=== PATIENT | male | born 1995 | race Caucasian/White ===

== ENCOUNTER 2020-12-03 16:39 | Inpatient (IN) | payer MEDICAID ==
[~2020-12-03] VITALS: Ht 175.3 cm; Wt 104.5 kg
[~2020-12-03 16:39] MED LIST: BENZ1TAB7 PO; CARI1.5C PO; DIVA250T8 PO; Lorazepam PO; PRAZ1CAP5 PO
--- NOTE | 2020-12-03 16:55 | NUR ---
at Addendum: 12/03/20 at [address] Montelongo at bedside doing ultrasound of abdomen
[2020-12-03] MEDS ORDERED: iohexol 300mg/ml 100ml inj. ONE (16:57)
[2020-12-03 17:34] LABS: BASOPHILS # (AUTO) 0.1 X10'3 (0-0.2); BASOPHILS % (AUTO) 0.6 % (0-1); EOSINOPHILS # (AUTO) 0.1 X10'3 (0-0.9); EOSINOPHILS % (AUTO) 0.6 % (0-6); HEMATOCRIT 42.3 % (42.0-52.0); HEMOGLOBIN 14.7 g/dl (14.0-17.9); LYMPHOCYTES # (AUTO) 1.1 X10'3 (1.1-4.8); LYMPHOCYTES % (AUTO) 11.1 % (21-51); MEAN CORPUSCULAR HEMOGLOBIN 31.2 PG (27.0-31.0); MEAN CORPUSCULAR HGB CONC 34.8 g/dL (33.0-36.5); MEAN CORPUSCULAR VOLUME 89.5 FL (78-98); MEAN PLATELET VOLUME 8.6 FL (7.4-10.4); MONOCYTES # (AUTO) 1.7 X10'3 (0-0.9); MONOCYTES % (AUTO) 16.5 % (2-12); NEUTROPHILS # (AUTO) 7.2 X10'3 (1.8-7.7); NEUTROPHILS % (AUTO) 71.2 % (42-75); PLATELET COUNT 252 X10'3 (140-440); RED BLOOD COUNT 4.73 X10'6 (4.70-6.10); RED CELL DISTRIBUTION WIDTH 11.8 % (11.5-14.5); WHITE BLOOD COUNT 10.2 X10'3 (4.5-11.0)
[2020-12-03 17:45] LABS: ALANINE AMINOTRANSFERASE 77 U/L (12-78); ALBUMIN 3.5 G/DL (3.4-5.0); ALKALINE PHOSPHATASE 69 IU/L (46-116); ANION GAP 9 (8-16); BILIRUBIN,TOTAL 0.4 MG/DL (0.1-1.0); BLOOD UREA NITROGEN 8 MG/DL (7-18); BUN/CREATININE RATIO 9.2 (5.4-32.0); CALCIUM 8.3 MG/DL (8.5-10.1); CHLORIDE 105 MMOL/L (99-107); CREATININE 0.87 MG/DL (0.60-1.10); GLUCOSE 108 MG/DL (70-104); SODIUM 142 MMOL/L (135-145); TOTAL CARBON DIOXIDE 27.8 MMOL/L (24-32); TOTAL PROTEIN 7.1 G/DL (6.4-8.2); eGFR > 90 ML/MIN
[2020-12-03 17:56] LABS: POTASSIUM 4.4 MMOL/L (3.5-5.1)
[2020-12-03 18:02] LABS: ASPARTATE AMINO TRANSFERASE 54 U/L (10-37)
[2020-12-03 18:41] LABS: TROPONIN I < 0.04 NG/ML (0.0-0.05)
--- NOTE | 2020-12-03 19:02 | NUR ---
ECHO PAGED OUT
[2020-12-03] MEDS ORDERED: CARI1.5C PO (19:30)
[2020-12-03] MEDS ORDERED: DIVA-76 PO (19:32)
[2020-12-03] MEDS ORDERED: LORA-269 PO (19:33)
[2020-12-03 19:37] LABS: BANDS% (MANUAL) 6 % (0-10); LYMPHOCYTES % (MANUAL) 12 % (21-51); NEUTROPHILS % (MANUAL) 66 % (42-75); TOTAL CELLS COUNTED 100
[2020-12-03] MEDS ORDERED: BENZ0.5T43 PO (19:37)
[2020-12-03 19:38] LABS: EOSINOPHILS % (MANUAL) 1 % (0-6); MONOCYTES % (MANUAL) 15 % (2-12); PLATELET ESTIMATE NORMAL
[2020-12-03] MEDS ORDERED: PRAZ2CAP2 PO (19:38)
[2020-12-03] MEDS ORDERED: DIVA-81 PO (19:45)
--- NOTE | 2020-12-03 20:00 | NUR ---
Pt lying on stretcher with no complaints voiced or reported. Mom remains at bedside.
[2020-12-03] MEDS ORDERED: acetaminophen 325mg tablet PO PRN ×2 (20:15)
[2020-12-03] MEDS ORDERED: potassium Cl 20 mEq SR tablet PO PRN ×2 (20:15)
[2020-12-03] MEDS ORDERED: HYDROcodone/acetaminophen 5mg/325mg tablet PO PRN (20:15)
[2020-12-03] MEDS ORDERED: ondansetron/PF 4mg/2ml inj IV PRN (20:15)
[2020-12-03] MEDS ORDERED: magnesium hydroxide 30ml (MOM) UD suspension PO PRN (20:15)
[2020-12-03] MEDS ORDERED: HYDROcodone/acetaminophen 10/325mg tab PO PRN (20:15)
[2020-12-03] MEDS ORDERED: morphine 2 MG/ML inj. syringe IV PRN ×2 (20:15)
[2020-12-03] MEDS ORDERED: mag hydrox/Alum hydrox/simeth 30ml oral suspension PO PRN (20:15)
[2020-12-03] MEDS ORDERED: magnesium 4gm in 100ml NS 100 ML IV PRN (20:15)
[2020-12-03] MEDS ORDERED: potassium Cl 40MEQ/1/2NS 520ml 520 ML IV PRN ×2 (20:15)
[2020-12-03] MEDS ORDERED: magnesium Cl slow-release 64mg tablet PO PRN (20:15)
[2020-12-03] MEDS ORDERED: magnesium 2GM in 50ml NS 50 ML IV PRN (20:15)
[2020-12-03] MEDS: normal saline 1000ml 1,000 ML IV SCH (20:56)
[2020-12-03] MEDS ORDERED: temazepam 15mg capsule PO PRN (21:00)
--- NOTE | 2020-12-03 23:00 | NUR ---
Pt asleep. + rise and fall of chest noted.
--- NOTE | 2020-12-04 02:00 | NUR ---
Pt sleeping with no complaints voiced or reported.
--- NOTE | 2020-12-04 04:35 | NUR ---
Pt awake. Denies pain or any other complaints at this time.
[2020-12-04] MEDS: normal saline 1000ml 1,000 ML IV SCH ×2 (06:15→16:27)
--- NOTE | 2020-12-04 07:27 | NUR ---
pt ambulated to bathroom with no assistance needed, steady gait.
[2020-12-04] MEDS: docusate sod 100mg capsule PO SCH ×2 (07:42→21:11)
[2020-12-04] MEDS: heparin, porcine 5000 units/ml vial SQ SCH ×2 (07:42→21:13)
[2020-12-04] MEDS: pantoprazole 40mg Tablet.DR PO SCH (07:42)
[2020-12-04] MEDS: K and/or MAG REPLACEMENT MC SCH ×2 (07:43→20:00)
--- NOTE | 2020-12-04 08:48 | NUR ---
pt walking around nursing station. stated he is tired of being in bed all night. ambulated with no assistance needed, no distress.
[2020-12-04 09:35] LABS: BASOPHILS % (AUTO) 0.5 % (0-1); EOSINOPHILS % (AUTO) 0.4 % (0-6); HEMATOCRIT 44.8 % (42.0-52.0); HEMOGLOBIN 15.3 g/dl (14.0-17.9); LYMPHOCYTES # (AUTO) 1.2 X10'3 (1.1-4.8); MEAN CORPUSCULAR HEMOGLOBIN 30.9 PG (27.0-31.0); MEAN CORPUSCULAR HGB CONC 34.3 g/dL (33.0-36.5); MEAN CORPUSCULAR VOLUME 90.2 FL (78-98); MEAN PLATELET VOLUME 8.8 FL (7.4-10.4); MONOCYTES # (AUTO) 1.5 X10'3 (0-0.9); MONOCYTES % (AUTO) 17.5 % (2-12); NEUTROPHILS % (AUTO) 67.6 % (42-75); PLATELET COUNT 292 X10'3 (140-440); RED BLOOD COUNT 4.97 X10'6 (4.70-6.10); RED CELL DISTRIBUTION WIDTH 12.2 % (11.5-14.5); WHITE BLOOD COUNT 8.9 X10'3 (4.5-11.0)
[2020-12-04 09:53] LABS: ALANINE AMINOTRANSFERASE 76 U/L (12-78); ALBUMIN 3.8 G/DL (3.4-5.0); ALBUMIN/GLOBULIN RATIO 0.9 (1.1-1.5); ALKALINE PHOSPHATASE 65 IU/L (46-116); ANION GAP 12 (8-16); BILIRUBIN,TOTAL 0.8 MG/DL (0.1-1.0); BLOOD UREA NITROGEN 12 MG/DL (7-18); BUN/CREATININE RATIO 18.5 (5.4-32.0); CALCIUM 8.4 MG/DL (8.5-10.1); CHLORIDE 103 MMOL/L (99-107); CREATININE 0.65 MG/DL (0.60-1.10); GLUCOSE 92 MG/DL (70-104); MAGNESIUM 2.3 MG/DL (1.5-2.4); SODIUM 141 MMOL/L (135-145); TOTAL CARBON DIOXIDE 26.2 MMOL/L (24-32); TOTAL PROTEIN 7.9 G/DL (6.4-8.2); eGFR > 90 ML/MIN
[2020-12-04 09:54] LABS: ASPARTATE AMINO TRANSFERASE 50 U/L (10-37); POTASSIUM 4.3 MMOL/L (3.5-5.1)
--- NOTE | 2020-12-04 09:54 | NUR ---
PATIENT MOVED TO B PER CARMEN AND RESTING QUIETLY.
[2020-12-04] MEDS: CARIPRAZINE 1.5 MG CAPSULE PO SCH ×2 (11:36→21:11)
[2020-12-04] MEDS: divalproex sodium 500mg tablet.DR PO SCH ×2 (11:36→21:12)
[2020-12-04] MEDS: divalproex sod 250mg ER (24-hour) tablet PO SCH (11:36)
--- NOTE | 2020-12-04 14:25 | NUR ---
PAGE TO DR. ENGLAND TO CLARIFY DIET. PAGER ID: [phone] MESSAGE: DR. ENGLAND, ER PATIENT, Annie CEE (FAST TRACK BED C) IS STILL CLASSIFIED NPO. CAN WE INCREASE HIS DIET, OR ARE YOU PLANNING TO CALL A CONSULT? THANKS, ANDREA RN EXT. [phone]
--- NOTE | 2020-12-04 16:10 | NUR ---
Pt in ER. Patient to go to room PCU 3013. I have received report from Mahsa in ER and had the opportunity to ask questions and assume patient care.
[2020-12-04 16:53] LABS: RED CELL DISTRIBUTION WIDTH 12.1 % (11.5-14.5)
[2020-12-04 16:54] LABS: HEMATOCRIT 42.8 % (42.0-52.0); MEAN CORPUSCULAR HEMOGLOBIN 31.1 PG (27.0-31.0); MEAN PLATELET VOLUME 9.3 FL (7.4-10.4); PLATELET COUNT 299 X10'3 (140-440); RED BLOOD COUNT 4.82 X10'6 (4.70-6.10); WHITE BLOOD COUNT 8.2 X10'3 (4.5-11.0)
[2020-12-04 17:00] VITALS: BP 134/81
[2020-12-04 17:10] LABS: PLATELET ESTIMATE NORMAL; TOTAL CELLS COUNTED 100
[2020-12-04 19:00] VITALS: BP 128/74
[2020-12-04] MEDS ORDERED: CARIPRAZINE 1.5 MG CAPSULE PO SCH (20:00)
[2020-12-04] MEDS ORDERED: divalproex sodium 500mg tablet.DR PO SCH (20:00)
[2020-12-04] MEDS ORDERED: prazosin 1mg capsule PO SCH (21:00)
[2020-12-04] MEDS: benztropine 1mg tablet PO SCH (21:10)
[2020-12-04] MEDS: LORazepam 0.5 MG tablet PO SCH (21:11)
[2020-12-04 23:00] VITALS: BP 124/70
[2020-12-05 03:00] VITALS: BP 139/84
[2020-12-05] MEDS: normal saline 1000ml 1,000 ML IV SCH (03:53)
--- NOTE | 2020-12-05 07:00 | NUR ---
Patient in room PCU 3013. I have received report from Lashell Aguilar and had the opportunity to ask questions and assume patient care.
[2020-12-05 07:05] VITALS: BP 127/87
[2020-12-05 07:08] LABS: BASOPHILS % (AUTO) 0.7 % (0-1); EOSINOPHILS # (AUTO) 0.2 X10'3 (0-0.9); EOSINOPHILS % (AUTO) 2.6 % (0-6); HEMATOCRIT 41.2 % (42.0-52.0); HEMOGLOBIN 13.9 g/dl (14.0-17.9); LYMPHOCYTES # (AUTO) 1.6 X10'3 (1.1-4.8); LYMPHOCYTES % (AUTO) 25.8 % (21-51); MEAN CORPUSCULAR HEMOGLOBIN 30.7 PG (27.0-31.0); MEAN CORPUSCULAR HGB CONC 33.8 g/dL (33.0-36.5); MEAN CORPUSCULAR VOLUME 90.9 FL (78-98); MEAN PLATELET VOLUME 9.1 FL (7.4-10.4); MONOCYTES % (AUTO) 16.2 % (2-12); NEUTROPHILS # (AUTO) 3.4 X10'3 (1.8-7.7); NEUTROPHILS % (AUTO) 54.7 % (42-75); PLATELET COUNT 260 X10'3 (140-440); RED BLOOD COUNT 4.53 X10'6 (4.70-6.10); WHITE BLOOD COUNT 6.2 X10'3 (4.5-11.0)
[2020-12-05 07:31] LABS: ALANINE AMINOTRANSFERASE 71 U/L (12-78); ALBUMIN 3.3 G/DL (3.4-5.0); ALBUMIN/GLOBULIN RATIO 0.9 (1.1-1.5); ALKALINE PHOSPHATASE 64 IU/L (46-116); ANION GAP 8 (8-16); ASPARTATE AMINO TRANSFERASE 42 U/L (10-37); BILIRUBIN,TOTAL 0.7 MG/DL (0.1-1.0); BLOOD UREA NITROGEN 18 MG/DL (7-18); BUN/CREATININE RATIO 20.7 (5.4-32.0); CALCIUM 8.2 MG/DL (8.5-10.1); CHLORIDE 107 MMOL/L (99-107); CREATININE 0.87 MG/DL (0.60-1.10); GLUCOSE 79 MG/DL (70-104); MAGNESIUM 2.3 MG/DL (1.5-2.4); POTASSIUM 3.8 MMOL/L (3.5-5.1); SODIUM 142 MMOL/L (135-145); TOTAL CARBON DIOXIDE 26.7 MMOL/L (24-32); TOTAL PROTEIN 6.8 G/DL (6.4-8.2); eGFR > 90 ML/MIN
[2020-12-05 07:32] LABS: TOTAL CELLS COUNTED 100
[2020-12-05 07:33] LABS: PLATELET ESTIMATE NORMAL
[2020-12-05] MEDS: divalproex sodium 500mg tablet.DR PO SCH (07:37)
[2020-12-05] MEDS: LORazepam 0.5 MG tablet PO SCH (07:37)
[2020-12-05] MEDS: divalproex sod 250mg ER (24-hour) tablet PO SCH (07:37)
[2020-12-05] MEDS: docusate sod 100mg capsule PO SCH (07:37)
[2020-12-05] MEDS: benztropine 1mg tablet PO SCH (07:37)
[2020-12-05] MEDS: pantoprazole 40mg Tablet.DR PO SCH (07:37)
[2020-12-05] MEDS: heparin, porcine 5000 units/ml vial SQ SCH (07:38)
[2020-12-05] MEDS: CARIPRAZINE 1.5 MG CAPSULE PO SCH (07:49)
[2020-12-05] MEDS: K and/or MAG REPLACEMENT MC SCH (07:51)
[2020-12-05 11:00] VITALS: BP 141/89
--- NOTE | 2020-12-05 12:18 | NUR ---
Pt stable for discharge per MD orders. Discharge instructions gone over with patient and all questions answered. Pt sent home with incentive spirometry device educated on use and return demonstration given and appropriate. PIV discontinued, Telemonitoring discontinued. Tech notified. Medications electronically sent to patient's pharmacy. Pt wheeled to lobby by staff and transported home by his controller operations and hr manager.
== END 2020-12-05 12:34 | disposition home or self-care (01) | DRG 135 ==
LOC: EDBD 16:39 → ER 16:39 → ED HOLD 20:29 → PCU 3S 12-04 16:44
PROVIDERS: ADMIT Internal Medicine; ATTEND Internal Medicine
PROC: BW241ZZ Computerized Tomography (CT Scan) of Chest and Abdomen using Low Osmolar Contrast (ICD-10-PCS; principal; 2020-12-03)
DX: S22.22XA Fracture of body of sternum, initial encounter for closed fracture (principal); F25.9 Schizoaffective disorder, unspecified; J90 Pleural effusion, not elsewhere classified; S30.1XXA Contusion of abdominal wall, initial encounter; F84.0 Autistic disorder; Y92.410 Unspecified street and highway as the place of occurrence of the external cause; V89.2XXA Person injured in unspecified motor-vehicle accident, traffic, initial encounter; Z79.899 Other long term (current) drug therapy; Y93.89 Activity, other specified; Y92.488 Other paved roadways as the place of occurrence of the external cause; Y99.8 Other external cause status; Z88.8 Allergy status to other drugs, medicaments and biological substances; S20.219A Contusion of unspecified front wall of thorax, initial encounter
CPT/HCPCS: 36415; 70450; 71045; 71260; 72125; 74177; 80053; 83735; 84484; 85007; 85025; 85610; 87081; 93005; 93306; 99285; G0378; J1644; J7030; Q9967

== ENCOUNTER 2021-02-02 09:55 | Emergency (ER) | payer MEDICAID ==
[~2021-02-02] VITALS: Ht 175.3 cm; Wt 105.2 kg
[~2021-02-02 09:55] MED LIST changes: +BENZ0.5T43 PO; +DIVA-76 PO; +DIVA-81 PO; +LORA-269 PO; +PRAZ2CAP2 PO
[2021-02-02 11:16] LABS: BASOPHILS % (AUTO) 0.6 % (0-1); EOSINOPHILS # (AUTO) 0.1 X10'3 (0-0.9); EOSINOPHILS % (AUTO) 0.9 % (0-6); HEMATOCRIT 45.8 % (42.0-52.0); HEMOGLOBIN 15.9 g/dl (14.0-17.9); LYMPHOCYTES # (AUTO) 1.6 X10'3 (1.1-4.8); MEAN CORPUSCULAR HEMOGLOBIN 30.6 PG (27.0-31.0); MEAN CORPUSCULAR HGB CONC 34.6 g/dL (33.0-36.5); MEAN CORPUSCULAR VOLUME 88.5 FL (78-98); MEAN PLATELET VOLUME 8.5 FL (7.4-10.4); MONOCYTES # (AUTO) 0.8 X10'3 (0-0.9); MONOCYTES % (AUTO) 11.4 % (2-12); NEUTROPHILS # (AUTO) 4.5 X10'3 (1.8-7.7); NEUTROPHILS % (AUTO) 64.1 % (42-75); PLATELET COUNT 315 X10'3 (140-440); RED BLOOD COUNT 5.18 X10'6 (4.70-6.10); RED CELL DISTRIBUTION WIDTH 12.2 % (11.5-14.5); WHITE BLOOD COUNT 7.1 X10'3 (4.5-11.0)
[2021-02-02 11:30] LABS: ALANINE AMINOTRANSFERASE 139 U/L (12-78); ALBUMIN 3.8 G/DL (3.4-5.0); ALKALINE PHOSPHATASE 79 IU/L (46-116); ANION GAP 9 (8-16); ASPARTATE AMINO TRANSFERASE 50 U/L (10-37); BILIRUBIN,TOTAL 0.5 MG/DL (0.1-1.0); BLOOD UREA NITROGEN 12 MG/DL (7-18); BUN/CREATININE RATIO 16.7 (5.4-32.0); CALCIUM 8.8 MG/DL (8.5-10.1); CHLORIDE 101 MMOL/L (99-107); CREATININE 0.72 MG/DL (0.60-1.10); ETHANOL < 0.010 GM/DL (0.0-0.010); GLUCOSE 91 MG/DL (70-104); POTASSIUM 3.9 MMOL/L (3.5-5.1); SODIUM 135 MMOL/L (135-145); TOTAL CARBON DIOXIDE 25.3 MMOL/L (24-32); TOTAL PROTEIN 7.8 G/DL (6.4-8.2); eGFR > 90 ML/MIN
--- NOTE | 2021-02-02 14:45 | NUR ---
Received patient from Main ED. Pt ambulated independently to bed 23, mother at bedside. Pt is calm and cooperative with admit process.
[2021-02-02 14:57] LABS: CLARITY,URINE CLEAR (Clear); COLOR,URINE YELLOW (Yellow); GLUCOSE, URINE NEGATIVE (Neg); KETONES,URINE 15 mg/dl (Neg); PROTEIN,URINE NEGATIVE (Neg); UA COLLECTION TYPE CLN CATCH MIDSTREAM
[2021-02-02 14:58] LABS: LEUKOCYTE ESTERASE ,URINE NEGATIVE (Neg); NITRITES, URINE NEGATIVE (Neg); OCCULT BLOOD,URINE NEGATIVE (Neg); UROBILINOGEN,URINE 0.2 E.U/dL (0.2-1.0)
[2021-02-02 15:08] LABS: URINE AMPHETAMINE SCREEN NEGATIVE (Neg); URINE BARBITUATE SCREEN NEGATIVE (Neg); URINE BENZODIAZEPINES SCREEN NEGATIVE (Neg); URINE CANNABINOID SCREEN NEGATIVE (Neg); URINE COCAINE SCREEN NEGATIVE (Neg); URINE METHADONE SCREEN NEGATIVE (Neg); URINE OPIATE SCREEN NEGATIVE (Neg); URINE PHENCYCLIDINE SCREEN NEGATIVE (Neg)
--- NOTE | 2021-02-02 15:58 | NUR ---
Pt was assessed for psychotic symptoms. Pt has a history of Schizophrenia and is followed [facility]. Pt presents calm and linear in thought. Pt endorses A/VH that began approximately 2 weeks ago. Pt reports "seeing yellow and blue lights and shadowy figures." Pt also reports "I have scary images in my head." "I know they are not real, but they just pop in my head." Pt denies suicidal and homicidal thoughts. Pt states "its exhausting telling the voices to go away." Pt shows a lot of insight into his mental health.
[2021-02-02] MEDS ORDERED: DIVA-81 PO (16:55)
[2021-02-02] MEDS ORDERED: CARI3CAP PO (16:55)
[2021-02-02] MEDS ORDERED: LORA-269 PO (16:55)
[2021-02-02] MEDS ORDERED: CARI1.5C PO ×2 (16:55→17:02)
--- NOTE | 2021-02-02 16:57 | NUR ---
PACKET FAXED TO [facility]
[2021-02-02] MEDS ORDERED: DIVA-76 PO (17:03)
[2021-02-02] MEDS ORDERED: PRAZ1CAP5 PO (17:04)
[2021-02-02] MEDS ORDERED: DIVA500T9 PO (17:09)
--- NOTE | 2021-02-02 17:16 | NUR ---
Pt sitting up in bed, [facility] and mother at bedside. Pt calm at this time.
--- NOTE | 2021-02-02 17:27 | NUR ---
Pt becoming anxious pt telling [facility] provider "endorsing A/VH." Received order for Ativan 1mg. Pt was agreeable to this.
[2021-02-02] MEDS ORDERED: LORazepam 1 MG tablet PO ONE (17:30)
[2021-02-02 18:07] VITALS: BP 124/84
--- NOTE | 2021-02-02 18:23 | NUR ---
DISCHARGE NOTE: Patient was discharged from unit at 1820. Pt left with all personal belongings. Pt ambulated independently to lobby. Discharge instructions were reviewed with pt and mother, both verbalized understanding. Pt has follow up appointments on 02/04 @ 02/24. Pt A&Ox4.
[2021-02-02] MEDS ORDERED: divalproex sodium 500mg tablet.DR PO SCH (20:00)
[2021-02-02] MEDS ORDERED: divalproex sod 250mg ER (24-hour) tablet PO SCH (20:00)
[2021-02-02] MEDS ORDERED: LORazepam 1 MG tablet PO SCH (20:00)
[2021-02-02] MEDS ORDERED: benztropine 1mg tablet PO SCH (20:00)
[2021-02-02] MEDS ORDERED: CARIPRAZINE 1.5 MG CAPSULE PO SCH (21:00)
[2021-02-02] MEDS ORDERED: prazosin 1mg capsule PO SCH (21:00)
[2021-02-03] MEDS ORDERED: CARIPRAZINE 1.5 MG CAPSULE PO SCH (08:00)
== END 2021-02-02 18:24 ==
LOC: ER 09:56
DX: R44.1 Visual hallucinations (principal); Z20.822 Contact with and (suspected) exposure to COVID-19; R44.0 Auditory hallucinations; F84.0 Autistic disorder; F39 Unspecified mood [affective] disorder; Z79.899 Other long term (current) drug therapy; Z88.1 Allergy status to other antibiotic agents; Z88.8 Allergy status to other drugs, medicaments and biological substances
CPT/HCPCS: 36415; 80053; 80305; 80320; 81003; 84443; 85025; 87635; 99285; C9803

== ENCOUNTER 2021-02-21 07:34 | Inpatient (IN) | payer MEDICAID ==
[~2021-02-21] VITALS: Ht 175.3 cm; Wt 99.4 kg
[~2021-02-21 07:34] MED LIST changes: -BENZ1TAB7 PO; +CARI3CAP PO; -DIVA-81 PO; -DIVA250T8 PO; +DIVA500T9 PO; -Lorazepam PO; -PRAZ2CAP2 PO
--- NOTE | 2021-02-21 08:00 | NUR ---
Mother Camilla #[phone]. Cell phone [phone], Father Herson cell phone [phone]. Per mother, Cell phones do not work well in their home area.
--- NOTE | 2021-02-21 08:30 | NUR ---
Patient eating breakfast. Mother at bedside. Patient is staying up at night and has not been doing well x 1 month. Patient is feeling depressed and suicidal. Patient is autistic and has schizophrenia. Patient is calm. Continue to monitor.
[2021-02-21 08:57] LABS: CLARITY,URINE CLEAR (Clear); COLOR,URINE YELLOW (Yellow); UA COLLECTION TYPE CLN CATCH MIDSTREAM
[2021-02-21 08:58] LABS: GLUCOSE, URINE NEGATIVE (Neg); KETONES,URINE NEGATIVE (Neg); LEUKOCYTE ESTERASE ,URINE NEGATIVE (Neg); NITRITES, URINE NEGATIVE (Neg); OCCULT BLOOD,URINE NEGATIVE (Neg); PROTEIN,URINE NEGATIVE (Neg); UROBILINOGEN,URINE 0.2 E.U/dL (0.2-1.0)
[2021-02-21] MEDS ORDERED: PRAZ2CAP2 PO (09:06)
[2021-02-21] MEDS ORDERED: DIVA-81 PO (09:06)
[2021-02-21] MEDS ORDERED: TRAZ-251 PO (09:06)
[2021-02-21] MEDS ORDERED: CARI1.5C PO (09:06)
[2021-02-21] MEDS ORDERED: D-MA1POW PO (09:06)
[2021-02-21] MEDS ORDERED: D-MA500C PO (09:09)
[2021-02-21] MEDS ORDERED: [UNRECOGNIZED DRUG - CODE] PO (09:09)
--- NOTE | 2021-02-21 09:54 | NUR ---
Patients' blood is being drawn. Patient calm and in no distress. Mother just left. Continue to monitor.
--- NOTE | 2021-02-21 10:30 | NUR ---
Patient laying supine in bed awake. No distress observed. Continue to monitor.
[2021-02-21 10:32] LABS: BASOPHILS % (AUTO) 0.4 % (0-1); EOSINOPHILS # (AUTO) 0.1 X10'3 (0-0.9); EOSINOPHILS % (AUTO) 0.7 % (0-6); HEMATOCRIT 42.9 % (42.0-52.0); HEMOGLOBIN 14.7 g/dl (14.0-17.9); LYMPHOCYTES # (AUTO) 1.4 X10'3 (1.1-4.8); MEAN CORPUSCULAR HEMOGLOBIN 30.4 PG (27.0-31.0); MEAN CORPUSCULAR HGB CONC 34.3 g/dL (33.0-36.5); MEAN CORPUSCULAR VOLUME 88.8 FL (78-98); MEAN PLATELET VOLUME 8.6 FL (7.4-10.4); MONOCYTES # (AUTO) 0.8 X10'3 (0-0.9); MONOCYTES % (AUTO) 9.5 % (2-12); NEUTROPHILS # (AUTO) 6.2 X10'3 (1.8-7.7); NEUTROPHILS % (AUTO) 72.4 % (42-75); PLATELET COUNT 267 X10'3 (140-440); RED BLOOD COUNT 4.84 X10'6 (4.70-6.10); RED CELL DISTRIBUTION WIDTH 12.5 % (11.5-14.5); WHITE BLOOD COUNT 8.5 X10'3 (4.5-11.0)
[2021-02-21 10:47] LABS: ALANINE AMINOTRANSFERASE 122 U/L (12-78); ALBUMIN 3.7 G/DL (3.4-5.0); ALBUMIN/GLOBULIN RATIO 1.1 (1.1-1.5); ALKALINE PHOSPHATASE 72 IU/L (46-116); ANION GAP 11 (8-16); ASPARTATE AMINO TRANSFERASE 46 U/L (10-37); BILIRUBIN,TOTAL 0.5 MG/DL (0.1-1.0); BLOOD UREA NITROGEN 11 MG/DL (7-18); BUN/CREATININE RATIO 13.8 (5.4-32.0); CALCIUM 8.8 MG/DL (8.5-10.1); CHLORIDE 102 MMOL/L (99-107); GLUCOSE 113 MG/DL (70-104); POTASSIUM 3.5 MMOL/L (3.5-5.1); SODIUM 139 MMOL/L (135-145); TOTAL CARBON DIOXIDE 25.6 MMOL/L (24-32); TOTAL PROTEIN 7.1 G/DL (6.4-8.2); eGFR > 90 ML/MIN
[2021-02-21 10:57] LABS: ETHANOL < 0.010 GM/DL (0.0-0.010); VALPROATE 64 UG/ML (50-100)
[2021-02-21 10:57] LABS: URINE AMPHETAMINE SCREEN NEGATIVE (Neg); URINE BARBITUATE SCREEN NEGATIVE (Neg); URINE BENZODIAZEPINES SCREEN NEGATIVE (Neg); URINE CANNABINOID SCREEN NEGATIVE (Neg); URINE COCAINE SCREEN NEGATIVE (Neg); URINE METHADONE SCREEN NEGATIVE (Neg); URINE OPIATE SCREEN NEGATIVE (Neg); URINE PHENCYCLIDINE SCREEN NEGATIVE (Neg)
--- NOTE | 2021-02-21 11:06 | NUR ---
Packet sent to [facility]
--- NOTE | 2021-02-21 12:00 | NUR ---
Registration is at the bedside interviewing the patient
--- NOTE | 2021-02-21 12:15 | NUR ---
[facility] is at the bedside assessing the patient
--- NOTE | 2021-02-21 13:10 | NUR ---
The patient appears to be sleeping
--- NOTE | 2021-02-21 13:35 | NUR ---
THe patient is tearful and stated he was worried about things he was seeing and felt it may be a punishment. He was reassured.
--- NOTE | 2021-02-21 14:44 | NUR ---
The patient appears to be sleeping
--- NOTE | 2021-02-21 16:15 | NUR ---
[facility] sitting with the patient.
--- NOTE | 2021-02-21 17:10 | NUR ---
The patient is resting on his bed watching TV.
[2021-02-21] MEDS ORDERED: D MANNOSE PO SCH (20:00)
[2021-02-21] MEDS ORDERED: [UNRECOGNIZED DRUG - OTHER] PO SCH (20:00)
[2021-02-21] MEDS: prazosin 1mg capsule PO SCH (20:23)
[2021-02-21] MEDS: benztropine 1mg tablet PO SCH (20:24)
[2021-02-21] MEDS: divalproex sodium 500mg tablet.DR PO SCH (20:25)
[2021-02-21] MEDS: LORazepam 1 MG tablet PO SCH (20:25)
[2021-02-21] MEDS: D MANNOSE PO SCH (20:25)
[2021-02-21] MEDS: SACCHAROMYCES BOULARDII PO SCH (20:25)
[2021-02-21] MEDS: traZODone 50mg tablet PO SCH (20:25)
[2021-02-21] MEDS: divalproex sod 250mg ER (24-hour) tablet PO SCH (20:25)
[2021-02-21] MEDS: CARIPRAZINE 1.5 MG CAPSULE PO SCH (20:26)
--- NOTE | 2021-02-21 20:46 | NUR ---
Pt pleasant and cooperative. Talked about frightening visual and auditory halucinations he was having prior to admit. Denies any halucinations at this time.
--- NOTE | 2021-02-21 21:32 | NUR ---
Moved to Main ER room 9.
--- NOTE | 2021-02-21 23:17 | NUR ---
pt has been sleeping since transfer
--- NOTE | 2021-02-22 01:33 | NUR ---
Pt sleeping at this time.
--- NOTE | 2021-02-22 06:10 | NUR ---
Patient transferred from main to ED OF bed 23 in his bed. No distress observed. Continue to monitor.
--- NOTE | 2021-02-22 08:35 | NUR ---
Patient eating breakfast. No distress observed. Continue to monitor.
[2021-02-22] MEDS: divalproex sodium 500mg tablet.DR PO SCH ×2 (08:53→20:02)
[2021-02-22] MEDS: divalproex sod 250mg ER (24-hour) tablet PO SCH ×2 (08:53→20:02)
[2021-02-22] MEDS: benztropine 1mg tablet PO SCH ×2 (08:54→20:02)
[2021-02-22] MEDS: LORazepam 1 MG tablet PO SCH ×2 (08:54→20:02)
--- NOTE | 2021-02-22 09:40 | NUR ---
RN called Pharmacy for meds. Ronnie stated they are slammed and the pharmacist has not verified the meds yet. Ronnie states she will send medication when it is ready. Continue to monitor.
--- NOTE | 2021-02-22 09:58 | NUR ---
Patient ambulatory to BR, steady gait. Tech placed T.V. in front of room so patient can watch. Patient was tearful earlier. Continue to monitor.
[2021-02-22] MEDS: CARIPRAZINE 1.5 MG CAPSULE PO SCH ×2 (11:15→20:02)
[2021-02-22] MEDS: D MANNOSE PO SCH ×2 (11:44→20:00)
[2021-02-22] MEDS: SACCHAROMYCES BOULARDII PO SCH ×2 (11:44→20:00)
--- NOTE | 2021-02-22 11:55 | NUR ---
Patient is reclining and watching T.V. No distress observed. Continue to monitor.
--- NOTE | 2021-02-22 13:12 | NUR ---
Patient eating lunch and then got up to use the BR. No distress observed. Continue to monitor.
--- NOTE | 2021-02-22 13:30 | NUR ---
Patient speaking to his mother on the phone. No distress observed. Continue to monitor.
--- NOTE | 2021-02-22 15:21 | NUR ---
Patient fell asleep watching T.V. No distress observed. Continue to monitor.
--- NOTE | 2021-02-22 17:02 | NUR ---
Patient is awake and watching T.V. No distress observed. continue to monitor.
--- NOTE | 2021-02-22 19:15 | NUR ---
Pt was sitting in bed watching tv at change of shift, pt is smiling appears happy. Pt ate dinner and put his tray at nursing station and went back to bed. Pt states he is reading his bible and waiting for a place to go for help. Pt states he continues to see a 'blue light and blue triangle that are demons."
--- NOTE | 2021-02-22 19:21 | NUR ---
PC to [facility] office, no beds right now anywhere to send a packet.
[2021-02-22] MEDS: prazosin 1mg capsule PO SCH (20:01)
[2021-02-22] MEDS: traZODone 50mg tablet PO SCH (20:02)
--- NOTE | 2021-02-22 21:11 | NUR ---
Pt is laying in bed sleeping rr even and unlabored
--- NOTE | 2021-02-22 23:57 | NUR ---
pt appears to be asleep
--- NOTE | 2021-02-23 01:49 | NUR ---
pt appears to be sleeping
--- NOTE | 2021-02-23 06:24 | NUR ---
Patient reclining in bed and watching T.V. No distress observed. Continue to monitor.
--- NOTE | 2021-02-23 08:10 | NUR ---
Patient eating breakfast. No distress observed. Continue to monitor.
[2021-02-23] MEDS: benztropine 1mg tablet PO SCH ×2 (08:25→20:08)
[2021-02-23] MEDS: CARIPRAZINE 1.5 MG CAPSULE PO SCH ×2 (08:26→20:07)
[2021-02-23] MEDS: divalproex sod 250mg ER (24-hour) tablet PO SCH ×2 (08:26→20:07)
[2021-02-23] MEDS: divalproex sodium 500mg tablet.DR PO SCH ×2 (08:26→20:07)
[2021-02-23] MEDS: SACCHAROMYCES BOULARDII PO SCH ×2 (08:27→20:06)
[2021-02-23] MEDS: LORazepam 1 MG tablet PO SCH ×2 (08:28→20:06)
[2021-02-23] MEDS: D MANNOSE PO SCH ×2 (08:28→20:06)
--- NOTE | 2021-02-23 10:08 | NUR ---
Patient ambulatory to BR, steady gait. No distress observed. Continue to monitor.
--- NOTE | 2021-02-23 11:26 | NUR ---
Patient resting in bed supine. No distress observed. Continue to monitor.
[2021-02-23 12:10] VITALS: BP 120/85
[2021-02-23] MEDS ORDERED: acetaminophen 325mg tablet PO PRN ×2 (12:30)
[2021-02-23] MEDS ORDERED: mag hydrox/Alum hydrox/simeth 30ml oral suspension PO PRN (12:30)
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
--- NOTE | 2021-02-23 17:45 | NUR ---
Group Art Tx, Continued: Patient was able to focus and engage in the activity and journaling. Patients was preoccupied on his relious beliefs and spiritual connection as the source of his thanksgiving. Patient was pleasant and aware of others in the group. He was able to listen and interact appropriately. *Please refer to the [employer] [facility] Notes for entire overview. Enid Downing MA, RN [facility]ACT[facility] #[id number] Art Therapist Addendum: 02/23/21 at 1746 by Enid Downing SS Amended: Links added.
[2021-02-23 19:29] VITALS: BP 127/80
[2021-02-23] MEDS: prazosin 1mg capsule PO SCH (20:06)
[2021-02-23] MEDS: traZODone 50mg tablet PO SCH (20:07)
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
[2021-02-24 07:59] VITALS: BP 133/95
[2021-02-24 08:23] LABS: HEMOGLOBIN A1C 5.2 % (4.5-6.2)
[2021-02-24] MEDS: benztropine 1mg tablet PO SCH ×2 (08:27→20:08)
[2021-02-24 08:28] LABS: CHOL/HDL RATIO 3.8 (0.00-4.99); CHOLESTEROL 147 MG/DL (0-200); HDL CHOLESTEROL 39 MG/DL (35-60); LDL CHOLESTEROL 85 MG/DL (50-100); TRIGLYCERIDES 124 MG/DL (20-135)
[2021-02-24] MEDS: CARIPRAZINE 1.5 MG CAPSULE PO SCH ×2 (08:30→20:08)
[2021-02-24] MEDS: LORazepam 1 MG tablet PO SCH ×2 (08:30→20:08)
[2021-02-24] MEDS: divalproex sod 250mg ER (24-hour) tablet PO SCH ×2 (08:30→20:06)
[2021-02-24] MEDS: divalproex sodium 500mg tablet.DR PO SCH ×2 (08:30→20:08)
[2021-02-24] MEDS: D MANNOSE PO SCH ×2 (08:31→20:09)
[2021-02-24] MEDS: SACCHAROMYCES BOULARDII PO SCH ×2 (08:32→20:09)
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
[2021-02-24 19:40] VITALS: BP 132/90
[2021-02-24] MEDS: prazosin 1mg capsule PO SCH (20:07)
[2021-02-24] MEDS: traZODone 50mg tablet PO SCH (20:10)
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
[2021-02-25] MEDS: divalproex sodium 500mg tablet.DR PO SCH (07:40)
[2021-02-25] MEDS: SACCHAROMYCES BOULARDII PO SCH ×2 (07:40→20:12)
[2021-02-25] MEDS: D MANNOSE PO SCH ×2 (07:40→20:12)
[2021-02-25] MEDS: LORazepam 1 MG tablet PO SCH ×2 (07:41→20:13)
[2021-02-25] MEDS: CARIPRAZINE 1.5 MG CAPSULE PO SCH ×2 (07:41→20:13)
[2021-02-25] MEDS: divalproex sod 250mg ER (24-hour) tablet PO SCH (07:41)
[2021-02-25] MEDS: benztropine 1mg tablet PO SCH ×2 (07:41→20:13)
[2021-02-25 07:44] VITALS: BP 142/88
--- NOTE | 2021-02-25 12:26 | NUR ---
Fiscal Assistant reviewed chart, and engaged pt in completing his psychosocial assessment. Pt signed #9 & ARMANDO. MSE: Appearance- disheveled, wearing hospital scrubs TP- Tangential [id number], delusional, auditory hallucinations Mood-anxious as he worries that there's no salvation for him Affect- constricted BXS- cooperative Speech-slow Plan: When stable pt will d/c home and follow up with [facility]. Trisha Goodwin LCSW Addendum: 02/25/21 at 1230 by Trisha Goodwin SS Amended: Links added.
--- NOTE | 2021-02-25 12:33 | NUR ---
MARIO SOMERS had t/c w/[facility] High School Music Instructor, per t/c pt was last seen by his provider on 01/25/21, she will check to see if pt already has a standing appointment and rt my t/c. Trisha Goodwin, TREE FELLER Addendum: 02/25/21 at 1234 by Trisha Goodwin Amended: Links added.
--- NOTE | 2021-02-25 13:34 | NUR ---
Pt. attended group today. We talked about Communication today focusing on how to utilize I messages. This Intermediate School Teacher shared how to create an I message and then we practiced writing them on the board. Pt. was very quiet today in group. He didn't' share any of her thoughts today about the topic. His demeanor was calm and pleasant. Bridgette Farr LCSW
[2021-02-25] MEDS ORDERED: traZODone 50mg tablet PO PRN (15:55)
[2021-02-25] MEDS: LORazepam 0.5 MG tablet PO PRN (16:00)
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
[2021-02-25 20:00] VITALS: BP 136/86
[2021-02-25] MEDS: traZODone 50mg tablet PO SCH (20:13)
[2021-02-25] MEDS: prazosin 1mg capsule PO SCH (20:13)
[2021-02-25] MEDS: divalproex 250mg tablet, delayed-release PO SCH ×2 (20:14)
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
[2021-02-26] MEDS: LORazepam 0.5 MG tablet PO PRN ×2 (03:30→18:17)
[2021-02-26] MEDS ORDERED: OLANZapine **IM** 10 mg inj. IM ONE (05:45)
--- NOTE | 2021-02-26 05:55 | NUR ---
Pt did not sleep and began door checking X2, pt had been re-directed however started to become agitated saying "I am a prophet from Ludin and need to be strong and leave here, I see a blue light." Provider ordered 10MG of Zyprexa given in left gluteal.
[2021-02-26] MEDS: LORazepam 1 MG tablet PO SCH ×2 (07:31→19:38)
[2021-02-26] MEDS: SACCHAROMYCES BOULARDII PO SCH ×2 (07:32→19:40)
[2021-02-26] MEDS: divalproex 250mg tablet, delayed-release PO SCH ×4 (07:34→19:39)
[2021-02-26] MEDS: CARIPRAZINE 1.5 MG CAPSULE PO SCH ×2 (07:34→19:38)
[2021-02-26] MEDS: D MANNOSE PO SCH ×2 (07:35→19:40)
[2021-02-26] MEDS: benztropine 1mg tablet PO SCH ×2 (07:36→19:38)
[2021-02-26 08:00] VITALS: BP 150/95
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
[2021-02-26] MEDS: olanzapine 10mg tablet PO SCH (19:38)
[2021-02-26] MEDS: prazosin 1mg capsule PO SCH (19:38)
[2021-02-26] MEDS: traZODone 50mg tablet PO SCH (19:38)
[2021-02-26 20:00] VITALS: BP 148/100
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
[2021-02-27] MEDS: LORazepam 0.5 MG tablet PO PRN ×2 (06:16→18:30)
[2021-02-27] MEDS: LORazepam 1 MG tablet PO SCH ×2 (07:21→19:39)
[2021-02-27] MEDS: CARIPRAZINE 1.5 MG CAPSULE PO SCH ×2 (07:21→19:40)
[2021-02-27] MEDS: benztropine 1mg tablet PO SCH ×2 (07:21→19:39)
[2021-02-27] MEDS: D MANNOSE PO SCH ×2 (07:22→19:41)
[2021-02-27] MEDS: SACCHAROMYCES BOULARDII PO SCH ×2 (07:22→19:41)
[2021-02-27] MEDS: divalproex 250mg tablet, delayed-release PO SCH ×4 (07:22→19:40)
[2021-02-27 08:00] VITALS: BP 140/99
--- NOTE | 2021-02-27 12:24 | NUR ---
Initial: Pt admit for schizoaffective disorder. Currently on a gluten fee diet and eating well with mostly 100% PO intake throughout LOS. LBM 02/25, with PRN bowel care available. No documented edema or wounds. No nutrition diagnosis at this time. Will continue to follow. Recommendations: 1) Continue gluten free diet 2) Monitor need for additional protein, offer snacks for satiety 3) Bowel care PRN 4) Weekly scaled weights Addendum: 02/27/21 at [address] Amended: Links added.
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
[2021-02-27] MEDS: traZODone 50mg tablet PO SCH (19:39)
[2021-02-27] MEDS: prazosin 1mg capsule PO SCH (19:40)
[2021-02-27] MEDS: olanzapine 10mg tablet PO SCH (19:40)
[2021-02-27 20:00] VITALS: BP 158/98
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
[2021-02-28] MEDS: LORazepam 0.5 MG tablet PO PRN ×2 (04:00→11:19)
[2021-02-28] MEDS: D MANNOSE PO SCH ×2 (07:54→20:00)
[2021-02-28] MEDS: SACCHAROMYCES BOULARDII PO SCH ×2 (07:54→20:01)
[2021-02-28] MEDS: divalproex 250mg tablet, delayed-release PO SCH ×4 (07:55→20:04)
[2021-02-28] MEDS: CARIPRAZINE 1.5 MG CAPSULE PO SCH ×2 (07:56→20:02)
[2021-02-28] MEDS: LORazepam 1 MG tablet PO SCH ×2 (07:56→19:58)
[2021-02-28 08:52] VITALS: BP 131/84
[2021-02-28] MEDS: benztropine 1mg tablet PO SCH ×2 (08:56→19:58)
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
[2021-02-28] MEDS: traZODone 50mg tablet PO SCH (20:01)
[2021-02-28] MEDS: prazosin 1mg capsule PO SCH (20:02)
[2021-02-28] MEDS: olanzapine 10mg tablet PO SCH (20:03)
[2021-02-28 20:50] VITALS: BP 138/99
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
[2021-03-01 08:00] VITALS: BP 128/99
[2021-03-01] MEDS: benztropine 1mg tablet PO SCH ×2 (08:17→20:03)
[2021-03-01] MEDS: D MANNOSE PO SCH ×2 (08:17→20:04)
[2021-03-01] MEDS: SACCHAROMYCES BOULARDII PO SCH ×2 (08:18→20:04)
[2021-03-01] MEDS: divalproex 250mg tablet, delayed-release PO SCH ×3 (08:20→20:05)
[2021-03-01] MEDS: CARIPRAZINE 1.5 MG CAPSULE PO SCH ×2 (08:21→20:06)
[2021-03-01] MEDS: LORazepam 1 MG tablet PO SCH ×2 (08:21→20:03)
--- NOTE | 2021-03-01 13:22 | NUR ---
PROBABLE CAUSE HEARING Patients Name: Christian Agarwal Admission Date: 02/23/21 Date of 5150: 02/21/21 Written by: [facility] Criteria: GD Summary of Facts: At [facility] d/t c/o intruding A/H. Christian states I see a blue and yellow light that is bad and demos everywhere He and his mother report that he is too scared to function in his daily life. Recent break in medications. Date of 525: 02/26/21 Written by: Jennifer Criteria: DTS, DTO, GD Summary of Facts: Christian presented to ED c/o return of feelings of persecution. Reported thoughts of harming himself. He still reports A/H and feelings of persecution. Voices told him to leave the unit and he is now checking doors and has been on a 1-1. He is still verbalizing SI Diagnosis: Schizoaffective d/o bipolar type Behavior during past 48 HRS: Continues to be hyperreligious, apologizing and praying as he walks the hallway, says he blasphemed. He says there are blue lights that say he is being blasphemes. He continues to be tearful. He has not been able to function at home and we have not seen a big difference in his sx change. He continues to be on a 1-1 for awol risk. FOOD: 100% SLEEPIN.5 ADLS: Requires prompting USP: [place] [facility] [place] MEDICATION DOSAGE FREQUENCY DURATION Ativan 1 mg po bid Cogentin 0.5 mg po bid Depakote 750 mg po bid Trazodone 50 mg po q hs Prazosin 2 mg po q hs Vraylar 4.5 mg po a day and 1.5 mg po q hs Zyprexa 20 mg po q hs
[2021-03-01] MEDS: LORazepam 0.5 MG tablet PO PRN (15:00)
[2021-03-01] MEDS: olanzapine 10mg tablet PO PRN (16:31)
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
[2021-03-01 19:23] VITALS: BP 134/86
[2021-03-01] MEDS: traZODone 50mg tablet PO SCH (20:05)
[2021-03-01] MEDS: olanzapine 10mg tablet PO SCH (20:06)
[2021-03-01] MEDS: prazosin 1mg capsule PO SCH (20:06)
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
[2021-03-02 07:00] VITALS: BP 164/97
[2021-03-02] MEDS ORDERED: divalproex 250mg tablet, delayed-release PO SCH (08:00)
[2021-03-02] MEDS: benztropine 1mg tablet PO SCH ×2 (08:06→19:59)
[2021-03-02] MEDS: D MANNOSE PO SCH ×2 (08:06→20:00)
[2021-03-02] MEDS: SACCHAROMYCES BOULARDII PO SCH ×2 (08:07→20:00)
[2021-03-02] MEDS: divalproex 250mg tablet, delayed-release PO SCH ×2 (08:07→20:01)
[2021-03-02] MEDS: CARIPRAZINE 1.5 MG CAPSULE PO SCH ×2 (08:07→20:02)
[2021-03-02] MEDS: LORazepam 1 MG tablet PO SCH ×2 (08:07→19:59)
[2021-03-02] MEDS: LORazepam 0.5 MG tablet PO PRN (10:56)
[2021-03-02] MEDS: olanzapine 10mg tablet PO PRN (10:56)
[2021-03-02] MEDS ORDERED: LORazepam 1 MG tablet PO ONE (14:00)
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
[2021-03-02] MEDS: traZODone 50mg tablet PO SCH (20:01)
[2021-03-02] MEDS: prazosin 1mg capsule PO SCH (20:02)
[2021-03-02] MEDS: olanzapine 10mg tablet PO SCH (20:03)
[2021-03-02 20:04] VITALS: BP 143/84
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
[2021-03-03] MEDS: benztropine 1mg tablet PO SCH ×2 (07:24→20:15)
[2021-03-03] MEDS: D MANNOSE PO SCH ×2 (07:24→20:15)
[2021-03-03] MEDS: SACCHAROMYCES BOULARDII PO SCH ×2 (07:24→20:15)
[2021-03-03] MEDS: divalproex 250mg tablet, delayed-release PO SCH ×2 (07:25→20:16)
[2021-03-03] MEDS: CARIPRAZINE 1.5 MG CAPSULE PO SCH ×2 (07:25→20:15)
[2021-03-03] MEDS: LORazepam 1 MG tablet PO SCH ×3 (07:25→20:15)
[2021-03-03 08:00] VITALS: BP 129/85
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
[2021-03-03 19:49] VITALS: BP 139/93
[2021-03-03] MEDS: olanzapine 10mg tablet PO SCH (20:15)
[2021-03-03] MEDS: traZODone 50mg tablet PO SCH (20:15)
[2021-03-03] MEDS: prazosin 1mg capsule PO SCH (20:16)
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
[2021-03-04 07:49] VITALS: BP 132/90
[2021-03-04] MEDS: SACCHAROMYCES BOULARDII PO SCH ×2 (08:05→20:38)
[2021-03-04] MEDS: D MANNOSE PO SCH ×2 (08:05→20:38)
[2021-03-04] MEDS: divalproex 250mg tablet, delayed-release PO SCH ×2 (08:05→20:40)
[2021-03-04] MEDS: LORazepam 1 MG tablet PO SCH ×4 (08:06→20:40)
[2021-03-04] MEDS: benztropine 1mg tablet PO SCH ×2 (08:06→20:39)
[2021-03-04] MEDS: CARIPRAZINE 1.5 MG CAPSULE PO SCH ×2 (08:06→20:39)
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
[2021-03-04 19:23] VITALS: BP 137/87
[2021-03-04] MEDS: olanzapine 10mg tablet PO SCH (20:39)
[2021-03-04] MEDS: traZODone 50mg tablet PO SCH (20:39)
[2021-03-04] MEDS: prazosin 1mg capsule PO SCH (20:39)
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
[2021-03-05 07:12] VITALS: BP 128/74
[2021-03-05] MEDS: benztropine 1mg tablet PO SCH ×2 (08:31→20:12)
[2021-03-05] MEDS: SACCHAROMYCES BOULARDII PO SCH ×2 (08:31→20:13)
[2021-03-05] MEDS: divalproex 250mg tablet, delayed-release PO SCH ×2 (08:31→20:13)
[2021-03-05] MEDS: CARIPRAZINE 1.5 MG CAPSULE PO SCH ×2 (08:31→20:12)
[2021-03-05] MEDS: D MANNOSE PO SCH ×2 (08:31→20:20)
[2021-03-05] MEDS: LORazepam 1 MG tablet PO SCH ×4 (08:31→20:13)
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
[2021-03-05 19:40] VITALS: BP 141/83
[2021-03-05] MEDS: traZODone 50mg tablet PO SCH (20:13)
[2021-03-05] MEDS: olanzapine 10mg tablet PO SCH (20:13)
[2021-03-05] MEDS: prazosin 1mg capsule PO SCH (20:13)
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
[2021-03-06 07:12] VITALS: BP 131/99
[2021-03-06] MEDS: benztropine 1mg tablet PO SCH ×2 (08:23→20:09)
[2021-03-06] MEDS: divalproex 250mg tablet, delayed-release PO SCH ×2 (08:24→20:10)
[2021-03-06] MEDS: LORazepam 1 MG tablet PO SCH ×4 (08:24→20:18)
[2021-03-06] MEDS: CARIPRAZINE 1.5 MG CAPSULE PO SCH ×2 (08:24→20:09)
[2021-03-06] MEDS: D MANNOSE PO SCH ×2 (09:19→20:11)
[2021-03-06] MEDS: SACCHAROMYCES BOULARDII PO SCH ×2 (09:19→20:10)
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
[2021-03-06 19:44] VITALS: BP 130/86
[2021-03-06] MEDS: traZODone 50mg tablet PO SCH (20:10)
[2021-03-06] MEDS: prazosin 1mg capsule PO SCH (20:10)
[2021-03-06] MEDS: olanzapine 10mg tablet PO SCH (20:10)
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
[2021-03-07] MEDS: LORazepam 1 MG tablet PO SCH ×4 (07:49→20:18)
[2021-03-07] MEDS: divalproex 250mg tablet, delayed-release PO SCH ×2 (07:50→20:18)
[2021-03-07] MEDS: SACCHAROMYCES BOULARDII PO SCH ×2 (07:51→20:21)
[2021-03-07] MEDS: benztropine 1mg tablet PO SCH ×2 (07:51→20:15)
[2021-03-07] MEDS: D MANNOSE PO SCH ×2 (07:51→20:21)
[2021-03-07] MEDS: CARIPRAZINE 1.5 MG CAPSULE PO SCH ×2 (07:51→20:19)
[2021-03-07 08:48] VITALS: BP 129/84
[2021-03-07 09:24] LABS: ALANINE AMINOTRANSFERASE 174 U/L (12-78); ALBUMIN 3.5 G/DL (3.4-5.0); ALBUMIN/GLOBULIN RATIO 0.9 (1.1-1.5); ALKALINE PHOSPHATASE 73 IU/L (46-116); ANION GAP 10 (8-16); ASPARTATE AMINO TRANSFERASE 59 U/L (10-37); BILIRUBIN,TOTAL 0.5 MG/DL (0.1-1.0); BLOOD UREA NITROGEN 22 MG/DL (7-18); BUN/CREATININE RATIO 31.4 (5.4-32.0); CALCIUM 8.7 MG/DL (8.5-10.1); CHLORIDE 105 MMOL/L (99-107); GLUCOSE 90 MG/DL (70-104); POTASSIUM 4.3 MMOL/L (3.5-5.1); SODIUM 141 MMOL/L (135-145); TOTAL CARBON DIOXIDE 26.5 MMOL/L (24-32); TOTAL PROTEIN 7.2 G/DL (6.4-8.2); VALPROATE 80 UG/ML (50-100); eGFR > 90 ML/MIN
[2021-03-07] MEDS ORDERED: lactulose 20gm/30ml cup PO SCH (16:00)
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
[2021-03-07 19:10] VITALS: BP 132/82
[2021-03-07] MEDS: traZODone 50mg tablet PO SCH (20:18)
[2021-03-07] MEDS: prazosin 1mg capsule PO SCH (20:19)
[2021-03-07] MEDS: fluvoxamine 25 MG tablet PO SCH (20:19)
[2021-03-07] MEDS: olanzapine 10mg tablet PO SCH (20:20)
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
[2021-03-08] MEDS: D MANNOSE PO SCH ×2 (07:47→20:12)
[2021-03-08] MEDS: CARIPRAZINE 1.5 MG CAPSULE PO SCH ×2 (07:47→20:12)
[2021-03-08] MEDS: SACCHAROMYCES BOULARDII PO SCH ×2 (07:47→20:13)
[2021-03-08] MEDS: LORazepam 1 MG tablet PO SCH ×4 (07:47→21:00)
[2021-03-08] MEDS: benztropine 1mg tablet PO SCH ×2 (07:48→20:14)
[2021-03-08] MEDS: divalproex 250mg tablet, delayed-release PO SCH ×2 (07:48→20:15)
[2021-03-08 08:00] VITALS: BP 119/76
--- NOTE | 2021-03-08 09:45 | NUR ---
Reassessment: Pt currently on a gluten fee diet and eating well with mostly 100% PO intake of meals, though may refuse one occasionally, noted to also consume some snacks overall meeting needs. LBM 03/06, with PRN bowel care available. No nutrition diagnosis at this time. Will continue to follow. Recommendations: 1) Continue gluten free diet 2) Monitor need for additional protein, offer snacks for satiety 3) Bowel care PRN 4) Weekly scaled weights Addendum: 03/08/21 at [address] Amended: Links added.
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
[2021-03-08 19:24] VITALS: BP 137/83
[2021-03-08] MEDS: fluvoxamine 25 MG tablet PO SCH (20:13)
[2021-03-08] MEDS: prazosin 1mg capsule PO SCH (20:13)
[2021-03-08] MEDS: olanzapine 10mg tablet PO SCH (20:15)
[2021-03-08] MEDS: traZODone 50mg tablet PO SCH (20:17)
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
[2021-03-09] MEDS: LORazepam 0.5 MG tablet PO SCH ×3 (08:21→20:33)
[2021-03-09] MEDS: SACCHAROMYCES BOULARDII PO SCH ×2 (08:21→20:30)
[2021-03-09] MEDS: benztropine 1mg tablet PO SCH ×2 (08:21→20:30)
[2021-03-09] MEDS: D MANNOSE PO SCH ×2 (08:21→20:30)
[2021-03-09] MEDS: divalproex 250mg tablet, delayed-release PO SCH ×2 (08:22→20:31)
[2021-03-09] MEDS: CARIPRAZINE 1.5 MG CAPSULE PO SCH ×2 (08:22→20:30)
[2021-03-09 08:41] VITALS: BP 131/79
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
[2021-03-09 19:58] VITALS: BP 128/81
[2021-03-09] MEDS: traZODone 50mg tablet PO SCH (20:30)
[2021-03-09] MEDS: prazosin 1mg capsule PO SCH (20:30)
[2021-03-09] MEDS: fluvoxamine 25 MG tablet PO SCH (20:31)
[2021-03-09] MEDS: olanzapine 10mg tablet PO SCH (20:31)
[2021-03-09] MEDS: magnesium hydroxide 30ml (MOM) UD suspension PO PRN (20:48)
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
[2021-03-10 07:35] VITALS: BP 130/82
[2021-03-10] MEDS: CARIPRAZINE 1.5 MG CAPSULE PO SCH (08:25)
[2021-03-10] MEDS: divalproex 250mg tablet, delayed-release PO SCH (08:25)
[2021-03-10] MEDS: D MANNOSE PO SCH ×2 (08:25→20:35)
[2021-03-10] MEDS: benztropine 1mg tablet PO SCH ×2 (08:25→20:36)
[2021-03-10] MEDS: SACCHAROMYCES BOULARDII PO SCH ×2 (08:25→20:36)
[2021-03-10] MEDS: magnesium hydroxide 30ml (MOM) UD suspension PO PRN (08:26)
[2021-03-10] MEDS: LORazepam 0.5 MG tablet PO SCH ×3 (08:26→20:35)
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
[2021-03-10 18:38] LABS: EOSINOPHILS # (AUTO) 0.1 X10'3 (0-0.9); LYMPHOCYTES # (AUTO) 1.4 X10'3 (1.1-4.8); NEUTROPHILS # (AUTO) 4.9 X10'3 (1.8-7.7); WHITE BLOOD COUNT 7.1 X10'3 (4.5-11.0)
[2021-03-10 18:40] LABS: BASOPHILS % (AUTO) 0.6 % (0-1); HEMATOCRIT 48.4 % (42.0-52.0); HEMOGLOBIN 16.3 g/dl (14.0-17.9); LYMPHOCYTES % (AUTO) 19.7 % (21-51); MEAN CORPUSCULAR HEMOGLOBIN 30.5 PG (27.0-31.0); MEAN CORPUSCULAR HGB CONC 33.6 g/dL (33.0-36.5); MEAN CORPUSCULAR VOLUME 90.7 FL (78-98); MEAN PLATELET VOLUME 9.6 FL (7.4-10.4); MONOCYTES # (AUTO) 0.7 X10'3 (0-0.9); MONOCYTES % (AUTO) 10.2 % (2-12); NEUTROPHILS % (AUTO) 68.5 % (42-75); PLATELET COUNT 327 X10'3 (140-440); RED BLOOD COUNT 5.34 X10'6 (4.70-6.10); RED CELL DISTRIBUTION WIDTH 12.7 % (11.5-14.5)
[2021-03-10 18:46] LABS: ALANINE AMINOTRANSFERASE 256 U/L (12-78); ALKALINE PHOSPHATASE 89 IU/L (46-116); ANION GAP 11 (8-16); ASPARTATE AMINO TRANSFERASE 129 U/L (10-37); BILIRUBIN,TOTAL 0.5 MG/DL (0.1-1.0); BLOOD UREA NITROGEN 24 MG/DL (7-18); BUN/CREATININE RATIO 32.9 (5.4-32.0); CALCIUM 9.3 MG/DL (8.5-10.1); CHLORIDE 105 MMOL/L (99-107); CREATININE 0.73 MG/DL (0.60-1.10); GLUCOSE 98 MG/DL (70-104); POTASSIUM 4.6 MMOL/L (3.5-5.1); SODIUM 140 MMOL/L (135-145); TOTAL CARBON DIOXIDE 24.4 MMOL/L (24-32); TOTAL PROTEIN 8.2 G/DL (6.4-8.2); eGFR > 90 ML/MIN
[2021-03-10 19:03] LABS: VALPROATE 70 UG/ML (50-100)
[2021-03-10 19:34] VITALS: BP 159/101
--- NOTE | 2021-03-10 20:09 | NUR ---
Pts labs came back and his liver enzymes continue to elevate, Dr Meeks notified and he ordered to D/C his Depakote. Pt appears very slowed, I assisted pt with drinking water and he just holds the straw in his mouth.
[2021-03-10] MEDS: prazosin 1mg capsule PO SCH (20:35)
[2021-03-10] MEDS: docusate sod 100mg capsule PO SCH (20:36)
[2021-03-10] MEDS: traZODone 50mg tablet PO SCH (20:36)
[2021-03-10] MEDS ORDERED: LORazepam 0.5 MG tablet PO ONE (20:55)
--- NOTE | 2021-03-10 20:56 | NUR ---
Pts vitals at 1930 were elevated 159/101 and HR 115, recheck done manually by the nurse and was 164/[address] Meeks, he ordered to give additional 0.5 mg Ativan now and recheck vitals in 30 minutes, if they remain elevated we are to contact the hospitalist.
[2021-03-10] MEDS ORDERED: olanzapine 10mg tablet PO SCH (21:00)
[2021-03-10] MEDS ORDERED: CARIPRAZINE 1.5 MG CAPSULE PO SCH (21:00)
[2021-03-10] MEDS ORDERED: polyethylene glycol 3350 17gm powd pack PO SCH (21:00)
--- NOTE | 2021-03-10 22:31 | NUR ---
Recheck of v/s b/p 170/100 L R 182/94, HR 135, notified Dr Meeks and he ordered to contact the hospitalist solutions architect consultant to evaluate the patient, contacted Dr Gonzalez and he stated he would come see the patient.
[2021-03-10] MEDS ORDERED: ringers solution, lacted 1,000 ML IV ONE (22:35)
[2021-03-10] MEDS: lisinopril 20mg tablet PO SCH (23:20)
[2021-03-11 00:03] LABS: D-DIMER 0.67 MG/L FEU (0-0.50)
[2021-03-11 00:13] LABS: ALANINE AMINOTRANSFERASE 226 U/L (12-78); ALBUMIN 3.5 G/DL (3.4-5.0); ALKALINE PHOSPHATASE 77 IU/L (46-116); ASPARTATE AMINO TRANSFERASE 91 U/L (10-37); BILIRUBIN,DIRECT 0.1 MG/DL (0-0.3); BILIRUBIN,TOTAL 0.5 MG/DL (0.1-1.0); CREATINE KINASE 86 U/L (39-308); LIPASE 88 U/L (73-393); PHOSPHORUS 3.3 MG/DL (2.3-4.5); TOTAL PROTEIN 7.1 G/DL (6.4-8.2)
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
[2021-03-11 03:10] VITALS: BP 128/77
--- NOTE | 2021-03-11 07:00 | NUR ---
Status Update: Received pt. laying in bed in an almost catatonic state this AM, he does respond to touch and appears to be mumbling very silently to himself. Obtained V/S, pulse and temperature elevated, however the rest of V/S WNL. Pt. also continues to have elevated AST and ALT lab values, along with an elevated D-dimer. Pt. does not appear to be able to eat or take his medications due to his altered state. His current status was endorsed to Dr. Meeks who informed this financial underwriter to notify the hospitalist. Per Dr. Stern Covid test ordered, along with CMP, CBC, and ammonia labs. Once results obtained notify Dr. Stern who will come see the pt. Pt. continues to have an IV present in the top of his left hand, both ports are flushing well. No s/s of erythema or infiltration noted.
[2021-03-11 08:00] VITALS: BP 132/83
[2021-03-11] MEDS: D MANNOSE PO SCH (08:00)
[2021-03-11] MEDS: LORazepam 0.5 MG tablet PO SCH ×2 (08:00→12:55)
[2021-03-11] MEDS: CARIPRAZINE 1.5 MG CAPSULE PO SCH (08:00)
[2021-03-11] MEDS: lisinopril 20mg tablet PO SCH (08:00)
[2021-03-11] MEDS: benztropine 1mg tablet PO SCH (08:00)
[2021-03-11] MEDS: docusate sod 100mg capsule PO SCH (08:00)
[2021-03-11] MEDS: SACCHAROMYCES BOULARDII PO SCH (08:00)
[2021-03-11 09:22] VITALS: BP 132/83
[2021-03-11 09:55] LABS: BASOPHILS % (AUTO) 0.5 % (0-1); EOSINOPHILS % (AUTO) 0.2 % (0-6); HEMOGLOBIN 15.5 g/dl (14.0-17.9); LYMPHOCYTES # (AUTO) 0.7 X10'3 (1.1-4.8); LYMPHOCYTES % (AUTO) 7.5 % (21-51); MEAN CORPUSCULAR HEMOGLOBIN 30.5 PG (27.0-31.0); MEAN CORPUSCULAR HGB CONC 33.7 g/dL (33.0-36.5); MEAN CORPUSCULAR VOLUME 90.4 FL (78-98); MEAN PLATELET VOLUME 8.7 FL (7.4-10.4); MONOCYTES # (AUTO) 0.8 X10'3 (0-0.9); MONOCYTES % (AUTO) 8.7 % (2-12); NEUTROPHILS # (AUTO) 7.3 X10'3 (1.8-7.7); NEUTROPHILS % (AUTO) 83.1 % (42-75); PLATELET COUNT 322 X10'3 (140-440); RED BLOOD COUNT 5.08 X10'6 (4.70-6.10); RED CELL DISTRIBUTION WIDTH 12.9 % (11.5-14.5); WHITE BLOOD COUNT 8.8 X10'3 (4.5-11.0)
[2021-03-11 10:12] LABS: ALANINE AMINOTRANSFERASE 223 U/L (12-78); ALBUMIN 3.7 G/DL (3.4-5.0); ALKALINE PHOSPHATASE 79 IU/L (46-116); ASPARTATE AMINO TRANSFERASE 100 U/L (10-37); BILIRUBIN,TOTAL 0.6 MG/DL (0.1-1.0); BLOOD UREA NITROGEN 16 MG/DL (7-18); BUN/CREATININE RATIO 23.9 (5.4-32.0); CALCIUM 8.8 MG/DL (8.5-10.1); CREATININE 0.67 MG/DL (0.60-1.10); GLUCOSE 114 MG/DL (70-104); TOTAL CARBON DIOXIDE 26.7 MMOL/L (24-32); TOTAL PROTEIN 7.4 G/DL (6.4-8.2); eGFR > 90 ML/MIN
--- NOTE | 2021-03-11 10:43 | NUR ---
Transfer note: Spoke with Dr Stern about pts condition. MD at pts bedside. MD is transferring pt to Surgical. Wrote order for new admit and called [employer] accounts payable supervisor. Pt straight cathed for retention of 1500cc urine. Pt has PIV in place awaiting room for Admission. Addendum: 03/11/21 at 1103 by Tram Carroll RN Pt's urine appears medium yellow and clear, he tolerated the catheterization well. His bedding was changed and clean gown and brief placed. Pt's mother is at bedside at this time. AST and ALT labs repeated and continue to be elevated. Pt's Covid test was negative.
[2021-03-11 11:16] LABS: ANION GAP 8 (8-16); CHLORIDE 104 MMOL/L (99-107); POTASSIUM 4.2 MMOL/L (3.5-5.1); SODIUM 139 MMOL/L (135-145)
--- NOTE | 2021-03-11 13:48 | NUR ---
Pt. transferred off the unit at this time in a gurney with his belongings, accompanied by two staff members. Pt's mother is also accompanying him. This expert medical writer called and gave report to DEBRA Moore.
--- NOTE | 2021-03-11 14:45 | NUR ---
Just spoke to Dr. Stern that patient is here now in Surgical Unit. I gave him update about patient condition. I told Dr. Stern that as of this time, patient still has not talking to us or responding, and that patient is not safe to take anything by mouth at this time. Dr. Stern aware of the elevated D-dimer, he said he wanted to rule out infection before we do CT scan of the chest.
[2021-03-12 10:57] LABS: HBSAG SCREEN Negative (Negative); HEP A AB, IGM Negative (Negative); HEP B CORE AB, TOT Negative (Negative); HEPATITIS C ANTIBODY <0.1 s/co ratio (0.0-0.9)
[2021-03-12] MEDS ORDERED: OLAN20TA3 PO (15:03)
[2021-03-12] MEDS ORDERED: POLY17PO10 PO (15:03)
[2021-03-12] MEDS ORDERED: LISI20TA28 PO (15:03)
[2021-03-12] MEDS ORDERED: PRAZ2CAP2 PO (15:03)
[2021-03-12] MEDS ORDERED: OLAN10TA3 PO (15:03)
[2021-03-12] MEDS ORDERED: DIVA500T2 PO (15:03)
[2021-03-12] MEDS ORDERED: DOCU100C40 PO (15:03)
[2021-03-12] MEDS ORDERED: BENZ0.5T43 PO (15:03)
[2021-03-12] MEDS ORDERED: LORA-268 PO (15:03)
[2021-03-12] MEDS ORDERED: FLUV25TA14 PO (15:03)
== END 2021-03-11 13:55 | disposition short-term general hospital (02) | DRG 750 ==
LOC: ER 07:36 → ED HOLD 02-23 10:30 → ADULT MH 02-23 12:25 → SUR 3N 03-11 13:55 → ADULT MH 03-11 13:55
PROVIDERS: ADMIT Psychiatry & Neurology Psychiatry; ATTEND Psychiatry & Neurology Psychiatry
DX: F25.0 Schizoaffective disorder, bipolar type (principal); R45.851 Suicidal ideations; Z20.822 Contact with and (suspected) exposure to COVID-19; G47.00 Insomnia, unspecified; F42.9 Obsessive-compulsive disorder, unspecified; E66.3 Overweight; F43.10 Post-traumatic stress disorder, unspecified; F84.0 Autistic disorder; R00.0 Tachycardia, unspecified; R03.0 Elevated blood-pressure reading, without diagnosis of hypertension; Z88.2 Allergy status to sulfonamides; Z88.8 Allergy status to other drugs, medicaments and biological substances; Z91.011 Allergy to milk products; Z79.899 Other long term (current) drug therapy; Z68.32 Body mass index [BMI] 32.0-32.9, adult
CPT/HCPCS: 36415; 80053; 80061; 80074; 80076; 80164; 80305; 80320; 81003; 82140; 82550; 83036; 83690; 83880; 84100; 85025; 85379; 86704; 86706; 87040; 87081; 87635; 99285; C9803; J3490; J7120

== ENCOUNTER 2021-03-11 10:25 | Inpatient (IN) | payer MEDICAID ==
[~2021-03-11] VITALS: Ht 170.2 cm; Wt 99.9 kg
[~2021-03-11 10:25] MED LIST changes: +D-MA1POW PO; +D-MA500C PO; +DIVA-81 PO; +PRAZ2CAP2 PO; +TRAZ-251 PO; +[UNRECOGNIZED DRUG - CODE] PO
[2021-03-11] MEDS ORDERED: ondansetron/PF 4mg/2ml inj IV PRN (12:10)
[2021-03-11] MEDS ORDERED: mag hydrox/Alum hydrox/simeth 30ml oral suspension PO PRN (12:10)
[2021-03-11] MEDS ORDERED: magnesium 2GM in 50ml NS 50 ML IV PRN (12:10)
[2021-03-11] MEDS ORDERED: magnesium 4gm in 100ml NS 100 ML IV PRN (12:10)
[2021-03-11] MEDS ORDERED: magnesium hydroxide 30ml (MOM) UD suspension PO PRN (12:10)
[2021-03-11] MEDS ORDERED: potassium Cl 20 mEq SR tablet PO PRN ×2 (12:10)
[2021-03-11] MEDS ORDERED: potassium CL 10mEq/100ml bag 100 ML IV PRN (12:10)
[2021-03-11] MEDS ORDERED: acetaminophen 325mg tablet PO PRN (12:10)
[2021-03-11] MEDS ORDERED: magnesium Cl slow-release 64mg tablet PO PRN (12:10)
[2021-03-11 14:11] VITALS: BP 143/88
--- NOTE | 2021-03-11 14:19 | NUR ---
Paged Radiology Surgical Aminta RN ext [phone] RE: Christian Agarwal. Patient is now in room 345A, we need chest Xray please
[2021-03-11 15:43] LABS: CREATINE KINASE 106 U/L (39-308); MAGNESIUM 2.3 MG/DL (1.5-2.4); POTASSIUM 4.1 MMOL/L (3.5-5.1)
--- NOTE | 2021-03-11 17:08 | NUR ---
Paged Dr. Stern PAGER ID: [phone] MESSAGE: Surgical Aminta RICHARDSON ext [phone]. RE: Christian Agarwal. Update: flu screen(-), do you want UA? bladder scan 662ml, mathis catheter?
--- NOTE | 2021-03-11 17:56 | NUR ---
Hook catheter Fr16 inserted using sterile technique, tolerated well. (+) urine flow to the drainage bag, yellow urine. Balloon inflated with total of 20ml after I found that some of the urine was leaking out of meatus so I added extra 10ml of NS now without anymore leakage.
[2021-03-11 18:18] LABS: CLARITY,URINE CLEAR (Clear); COLOR,URINE YELLOW (Yellow); GLUCOSE, URINE NEGATIVE (Neg); KETONES,URINE 40 mg/dl (Neg); LEUKOCYTE ESTERASE ,URINE NEGATIVE (Neg); NITRITES, URINE NEGATIVE (Neg); OCCULT BLOOD,URINE SMALL (Neg); PH,URINE 7.5 (4.8-8.0); PROTEIN,URINE NEGATIVE (Neg); UROBILINOGEN,URINE 0.2 E.U/dL (0.2-1.0)
[2021-03-11 18:20] LABS: UA COLLECTION TYPE FOLEY CATH
[2021-03-11 18:26] LABS: BACTERIA,URINE NONE SEEN /HPF (Neg); RBC,URINE 0-2 /HPF (0-2); SQUAMOUS EPITHELIAL CELL,UR FEW /LPF (FEW); WBC,URINE NONE SEEN /HPF (0-4)
[2021-03-11] MEDS: normal saline 1000ml 1,000 ML IV SCH ×2 (18:50→19:48)
--- NOTE | 2021-03-11 19:26 | NUR ---
Patient in room [facility] 345. I have received report from Aminta RICHARDSON and had the opportunity to ask questions and assume patient care.
[2021-03-11] MEDS: levoFLOXACIN-Levaquin 500mg/D5 100 ML IV SCH (19:48)
[2021-03-11] MEDS: docusate sod 100mg capsule PO SCH (19:57)
[2021-03-11] MEDS: K and/or MAG REPLACEMENT MC SCH (19:58)
[2021-03-11 20:00] VITALS: BP 129/84
[2021-03-11 23:49] VITALS: BP 130/77
[2021-03-12] MEDS: normal saline 1000ml 1,000 ML IV SCH ×2 (02:42→08:38)
--- NOTE | 2021-03-12 04:27 | NUR ---
I have reviewed and agree with all interventions, assessments performed and documented by Deedee Machuca
--- NOTE | 2021-03-12 06:13 | NUR ---
Problems reprioritized. Patient report given, questions answered & plan of care reviewed with Cait RICHARDSON.
--- NOTE | 2021-03-12 06:18 | NUR ---
Problems reprioritized. Patient report given, questions answered & plan of care reviewed with DEBRA Chavira.
[2021-03-12 06:43] LABS: BASOPHILS % (AUTO) 0.5 % (0-1); EOSINOPHILS % (AUTO) 0.4 % (0-6); HEMATOCRIT 43.1 % (42.0-52.0); HEMOGLOBIN 14.6 g/dl (14.0-17.9); LYMPHOCYTES # (AUTO) 1.4 X10'3 (1.1-4.8); LYMPHOCYTES % (AUTO) 19.4 % (21-51); MEAN CORPUSCULAR HEMOGLOBIN 30.7 PG (27.0-31.0); MEAN CORPUSCULAR HGB CONC 33.9 g/dL (33.0-36.5); MEAN CORPUSCULAR VOLUME 90.7 FL (78-98); MEAN PLATELET VOLUME 8.8 FL (7.4-10.4); MONOCYTES # (AUTO) 1.2 X10'3 (0-0.9); MONOCYTES % (AUTO) 16.3 % (2-12); NEUTROPHILS # (AUTO) 4.6 X10'3 (1.8-7.7); NEUTROPHILS % (AUTO) 63.4 % (42-75); PLATELET COUNT 282 X10'3 (140-440); RED BLOOD COUNT 4.75 X10'6 (4.70-6.10); WHITE BLOOD COUNT 7.2 X10'3 (4.5-11.0)
--- NOTE | 2021-03-12 06:43 | NUR ---
Patient in room [facility] 345A. I have received report from LOLY RN & DEBRA CROW and had the opportunity to ask questions and assume patient care.
[2021-03-12 07:00] VITALS: BP 127/77
[2021-03-12 07:01] LABS: ALANINE AMINOTRANSFERASE 203 U/L (12-78); ALBUMIN 3.2 G/DL (3.4-5.0); ALBUMIN/GLOBULIN RATIO 0.8 (1.1-1.5); ALKALINE PHOSPHATASE 70 IU/L (46-116); ANION GAP 11 (8-16); ASPARTATE AMINO TRANSFERASE 82 U/L (10-37); BILIRUBIN,TOTAL 0.7 MG/DL (0.1-1.0); BLOOD UREA NITROGEN 12 MG/DL (7-18); BUN/CREATININE RATIO 18.8 (5.4-32.0); CALCIUM 8.5 MG/DL (8.5-10.1); CHLORIDE 107 MMOL/L (99-107); CREATININE 0.64 MG/DL (0.60-1.10); GLUCOSE 84 MG/DL (70-104); MAGNESIUM 2.2 MG/DL (1.5-2.4); POTASSIUM 3.9 MMOL/L (3.5-5.1); SODIUM 140 MMOL/L (135-145); TOTAL CARBON DIOXIDE 22.3 MMOL/L (24-32); TOTAL PROTEIN 7.1 G/DL (6.4-8.2); eGFR > 90 ML/MIN
[2021-03-12] MEDS ORDERED: enoxaparin 40mg/0.4ml syringe SUBCUT SCH (08:00)
[2021-03-12] MEDS: K and/or MAG REPLACEMENT MC SCH (08:00)
[2021-03-12] MEDS: docusate sod 100mg capsule PO SCH (08:00)
[2021-03-12] MEDS: levoFLOXACIN-Levaquin 500mg/D5 100 ML IV SCH (08:23)
[2021-03-12 11:00] VITALS: BP 101/54
[2021-03-12] MEDS ORDERED: POLY17PO10 PO (15:03)
[2021-03-12] MEDS ORDERED: LISI20TA28 PO (15:03)
[2021-03-12] MEDS ORDERED: BENZ0.5T43 PO (15:03)
[2021-03-12] MEDS ORDERED: DIVA500T2 PO (15:03)
[2021-03-12] MEDS ORDERED: DOCU100C40 PO (15:03)
[2021-03-12] MEDS ORDERED: OLAN10TA3 PO (15:03)
[2021-03-12] MEDS ORDERED: FLUV25TA14 PO (15:03)
[2021-03-12] MEDS ORDERED: LORA-268 PO (15:03)
[2021-03-12] MEDS ORDERED: PRAZ2CAP2 PO (15:03)
[2021-03-12] MEDS ORDERED: OLAN20TA3 PO (15:03)
--- NOTE | 2021-03-12 15:35 | NUR ---
PATIENT STABLE FOR TRANSFER, IV REMOVED, EDUCATION GIVEN TO PATIENT AND MOTHER, MOTHER SIGNED DISCHARGE PAPERWORK, PATIENT TRANSFERRED TO [facility], PATIENT TAKEN TO [facility] BY WHEELCHAIR ACCOMPANIED BY THIS NURSE AND [facility] NURSE.
[2021-03-12] MEDS ORDERED: lactobacillus rhamnosus 10,000 MMU CELLS/CAPSULE PO SCH (20:00)
== END 2021-03-12 15:35 | DRG 422 ==
LOC: SUR 3N 12:09 → UNDOADMIN 13:55 → SUR 3N 14:56
PROVIDERS: ADMIT Family Medicine; ATTEND Family Medicine
DX: E86.0 Dehydration (principal); F25.9 Schizoaffective disorder, unspecified; F84.0 Autistic disorder; Z20.822 Contact with and (suspected) exposure to COVID-19; R00.0 Tachycardia, unspecified
CPT/HCPCS: 36415; 70450; 71045; 80053; 81001; 82550; 83605; 83735; 84132; 84145; 85025; 86140; 87040; 87502; 87503; G0378; J1650; J1956; J2405; J7030

== ENCOUNTER 2021-04-19 09:56 | Inpatient (IN) | payer MEDICAID ==
[~2021-04-19] VITALS: Ht 175.3 cm; Wt 95.2 kg
[~2021-04-19 09:56] MED LIST changes: -D-MA1POW PO; -DIVA-76 PO; -DIVA-81 PO; +DIVA500T2 PO; -DIVA500T9 PO; +DOCU100C40 PO; +FLUV25TA14 PO; +LISI20TA28 PO; +LORA-268 PO; -LORA-269 PO; +OLAN10TA3 PO; +OLAN20TA3 PO; +POLY17PO10 PO; -PRAZ1CAP5 PO
[2021-04-19] MEDS ORDERED: CLOZ25TA12 PO ×3 (10:03)
[2021-04-19] MEDS ORDERED: MAG30ORA PO (10:03)
[2021-04-19] MEDS ORDERED: DIVA250T4 PO (10:03)
[2021-04-19] MEDS ORDERED: LOP25T PO (10:03)
[2021-04-19] MEDS ORDERED: CLOZ100T13 PO (10:03)
[2021-04-19] MEDS ORDERED: Lorazepam PO ×2 (10:03)
[2021-04-19] MEDS ORDERED: MAGN400O6 PO (10:03)
[2021-04-19] MEDS ORDERED: ATI1T PO ×2 (10:03)
[2021-04-19] MEDS ORDERED: NITR0.4T51 SL ×2 (10:03→13:50)
[2021-04-19] MEDS ORDERED: magnesium hydroxide 30ml (MOM) UD suspension PO PRN (12:40)
[2021-04-19] MEDS ORDERED: mag hydrox/Alum hydrox/simeth 30ml oral suspension PO PRN (12:40)
[2021-04-19] MEDS ORDERED: ondansetron/PF 4mg/2ml inj IV PRN (12:40)
[2021-04-19] MEDS ORDERED: potassium Cl 20 mEq SR tablet PO PRN (12:40)
[2021-04-19] MEDS ORDERED: potassium CL 10mEq/100ml bag 100 ML IV PRN (12:40)
[2021-04-19] MEDS ORDERED: magnesium Cl slow-release 64mg tablet PO PRN (12:40)
[2021-04-19] MEDS ORDERED: acetaminophen 325mg tablet PO PRN (12:40)
[2021-04-19] MEDS ORDERED: HYDROcodone/acetaminophen 10/325mg tab PO PRN (12:40)
[2021-04-19] MEDS ORDERED: HYDROcodone/acetaminophen 5mg/325mg tablet PO PRN (12:40)
[2021-04-19] MEDS ORDERED: magnesium 2GM in 50ml NS 50 ML IV PRN (12:40)
[2021-04-19] MEDS ORDERED: bisacodyl 10mg suppository rectal RC PRN (12:40)
[2021-04-19] MEDS ORDERED: magnesium 4gm in 100ml NS 100 ML IV PRN (12:40)
[2021-04-19] MEDS ORDERED: CLOZ25TA36 PO ×2 (13:50)
[2021-04-19] MEDS ORDERED: CLOZ25TA5 PEG (13:50)
[2021-04-19] MEDS ORDERED: LORA-269 PO ×2 (13:50)
[2021-04-19] MEDS ORDERED: CLOZ100T21 PO (13:50)
[2021-04-19] MEDS ORDERED: LORA-268 PO ×2 (13:50)
[2021-04-19] MEDS ORDERED: LOP12.5T PO (13:50)
[2021-04-19] MEDS ORDERED: DIVA500T28 PO (13:50)
[2021-04-19 16:00] VITALS: BP 118/71
--- NOTE | 2021-04-19 16:00 | NUR ---
PT ARRIVED TO THE FLOOR FROM [facility] IN STABLE CONDITION, WILL CONTINUE TO MONITOR
[2021-04-19] MEDS ORDERED: LORazepam 1 MG tablet PO PRN (16:50)
[2021-04-19 17:30] LABS: D-DIMER 0.27 MG/L FEU (0-0.50)
[2021-04-19 17:47] LABS: C-REACTIVE PROTEIN 4.27 MG/DL (0.0-0.5); MAGNESIUM 2.1 MG/DL (1.5-2.4); POTASSIUM 3.4 MMOL/L (3.5-5.1)
[2021-04-19] MEDS: normal saline 1000ml 1,000 ML IV SCH ×2 (17:52→22:40)
--- NOTE | 2021-04-19 18:33 | NUR ---
Problems reprioritized. Patient report given, questions answered & plan of care reviewed with DEBRA ASHBY.
[2021-04-19] MEDS: K and/or MAG REPLACEMENT MC SCH (20:00)
[2021-04-19] MEDS: divalproex sodium 500mg tablet.DR PO SCH (20:30)
[2021-04-19] MEDS: potassium Cl 20 mEq SR tablet PO PRN (20:31)
[2021-04-19] MEDS: LORazepam 0.5 MG tablet PO SCH (20:31)
[2021-04-19] MEDS: docusate sod 100mg capsule PO SCH (20:31)
[2021-04-19] MEDS: clozapine 100mg tablet PO SCH (20:32)
[2021-04-19] MEDS: clozapine 25mg tablet PO SCH (20:32)
[2021-04-19] MEDS: metoprolol tartrate 25mg tablet PO SCH (20:35)
[2021-04-19] MEDS ORDERED: temazepam 15mg capsule PO PRN (21:00)
[2021-04-19 22:00] VITALS: BP 117/74
[2021-04-20] MEDS: potassium Cl 20 mEq SR tablet PO PRN ×2 (00:12→04:27)
[2021-04-20 02:00] VITALS: BP 130/75
[2021-04-20 06:33] VITALS: BP 126/71
[2021-04-20] MEDS ORDERED: DEXAMETHASONE 6 MG TABLET PO SCH (08:00)
[2021-04-20] MEDS: K and/or MAG REPLACEMENT MC SCH ×2 (08:00→20:00)
[2021-04-20] MEDS ORDERED: enoxaparin 40mg/0.4ml syringe SUBCUT SCH (08:00)
[2021-04-20] MEDS: divalproex sodium 500mg tablet.DR PO SCH ×2 (08:31→20:17)
[2021-04-20] MEDS: docusate sod 100mg capsule PO SCH ×2 (08:31→20:15)
[2021-04-20] MEDS: LORazepam 0.5 MG tablet PO SCH ×2 (08:31→20:17)
[2021-04-20] MEDS: clozapine 25mg tablet PO SCH ×3 (08:31→21:25)
[2021-04-20] MEDS: metoprolol tartrate 25mg tablet PO SCH ×2 (08:34→20:17)
[2021-04-20 08:42] LABS: BASOPHILS % (AUTO) 0.3 % (0-1); EOSINOPHILS % (AUTO) 0.1 % (0-6); HEMOGLOBIN 14.4 g/dl (14.0-17.9); LYMPHOCYTES % (AUTO) 9.2 % (21-51); MEAN CORPUSCULAR HGB CONC 34.2 g/dL (33.0-36.5); MEAN CORPUSCULAR VOLUME 90.5 FL (78-98); MEAN PLATELET VOLUME 8.9 FL (7.4-10.4); MONOCYTES # (AUTO) 1.7 X10'3 (0-0.9); MONOCYTES % (AUTO) 16.3 % (2-12); NEUTROPHILS # (AUTO) 7.7 X10'3 (1.8-7.7); NEUTROPHILS % (AUTO) 74.1 % (42-75); PLATELET COUNT 259 X10'3 (140-440); RED BLOOD COUNT 4.65 X10'6 (4.70-6.10); RED CELL DISTRIBUTION WIDTH 13.5 % (11.5-14.5); WHITE BLOOD COUNT 10.4 X10'3 (4.5-11.0)
[2021-04-20 08:57] LABS: ALANINE AMINOTRANSFERASE 65 U/L (12-78); ALBUMIN 3.1 G/DL (3.4-5.0); ALBUMIN/GLOBULIN RATIO 0.9 (1.1-1.5); ALKALINE PHOSPHATASE 65 IU/L (46-116); ANION GAP 10 (8-16); ASPARTATE AMINO TRANSFERASE 34 U/L (10-37); BILIRUBIN,TOTAL 0.3 MG/DL (0.1-1.0); BLOOD UREA NITROGEN 10 MG/DL (7-18); BUN/CREATININE RATIO 15.4 (5.4-32.0); CALCIUM 8.2 MG/DL (8.5-10.1); CHLORIDE 103 MMOL/L (99-107); CREATININE 0.65 MG/DL (0.60-1.10); GLUCOSE 88 MG/DL (70-104); LACTATE DEHYDROGENASE 222 U/L (85-227); MAGNESIUM 2.1 MG/DL (1.5-2.4); POTASSIUM 3.9 MMOL/L (3.5-5.1); SODIUM 139 MMOL/L (135-145); TOTAL CARBON DIOXIDE 26.2 MMOL/L (24-32); TOTAL PROTEIN 6.5 G/DL (6.4-8.2); eGFR > 90 ML/MIN
[2021-04-20 09:03] LABS: D-DIMER 0.42 MG/L FEU (0-0.50)
[2021-04-20 09:17] LABS: APTT 34 SECONDS (22-32)
[2021-04-20 11:11] VITALS: BP 126/68
[2021-04-20] MEDS: acetaminophen 325mg tablet PO PRN ×2 (11:32→22:34)
[2021-04-20] MEDS: normal saline 1000ml 1,000 ML IV SCH (11:45)
[2021-04-20 12:54] LABS: PLATELET ESTIMATE NORMAL; TOTAL CELLS COUNTED 100
[2021-04-20] MEDS: LORazepam 1 MG tablet PO SCH (14:13)
[2021-04-20 15:42] VITALS: BP 103/52
[2021-04-20] MEDS ORDERED: REMDESIVIR INJ 200 MG in normal saline 100ml IV soln 100 ML IV ONE (17:50)
--- NOTE | 2021-04-20 18:22 | NUR ---
Report to Kaushik RICHARDSON
[2021-04-20 18:30] VITALS: BP 142/88
[2021-04-20] MEDS: dexamethasone inj 6 MG in dextrose 5%-water 100 ML IV SCH (20:15)
[2021-04-20] MEDS: enoxaparin 40mg/0.4ml syringe SUBCUT SCH (20:18)
[2021-04-20] MEDS: clozapine 100mg tablet PO SCH (21:25)
[2021-04-20 22:00] VITALS: BP 120/62
[2021-04-21 02:00] VITALS: BP 123/75
[2021-04-21 06:35] VITALS: BP 110/63
[2021-04-21] MEDS: REMDESIVIR INJ 100 MG in normal saline 100ml IV soln 100 ML IV SCH (07:47)
[2021-04-21] MEDS: docusate sod 100mg capsule PO SCH ×2 (07:47→21:14)
[2021-04-21] MEDS: divalproex sodium 500mg tablet.DR PO SCH ×2 (07:48→21:14)
[2021-04-21] MEDS: LORazepam 0.5 MG tablet PO SCH ×2 (07:48→21:14)
[2021-04-21] MEDS: dexamethasone inj 6 MG in dextrose 5%-water 100 ML IV SCH ×2 (07:49→21:15)
[2021-04-21] MEDS: enoxaparin 40mg/0.4ml syringe SUBCUT SCH ×2 (07:49→21:15)
[2021-04-21] MEDS: clozapine 25mg tablet PO SCH ×3 (07:50→21:15)
[2021-04-21] MEDS: metoprolol tartrate 25mg tablet PO SCH ×2 (07:50→21:16)
[2021-04-21] MEDS: K and/or MAG REPLACEMENT MC SCH ×2 (08:00→20:00)
[2021-04-21 09:11] LABS: APTT 38 SECONDS (22-32)
[2021-04-21 09:13] LABS: BASOPHILS % (AUTO) 0.3 % (0-1); EOSINOPHILS % (AUTO) 0 % (0-6); HEMATOCRIT 45.3 % (42.0-52.0); HEMOGLOBIN 15.3 g/dl (14.0-17.9); LYMPHOCYTES # (AUTO) 0.6 X10'3 (1.1-4.8); LYMPHOCYTES % (AUTO) 14.4 % (21-51); MEAN CORPUSCULAR HEMOGLOBIN 30.8 PG (27.0-31.0); MEAN CORPUSCULAR HGB CONC 33.7 g/dL (33.0-36.5); MEAN CORPUSCULAR VOLUME 91.4 FL (78-98); MEAN PLATELET VOLUME 9.4 FL (7.4-10.4); MONOCYTES # (AUTO) 0.1 X10'3 (0-0.9); MONOCYTES % (AUTO) 3.3 % (2-12); NEUTROPHILS # (AUTO) 3.6 X10'3 (1.8-7.7); PLATELET COUNT 274 X10'3 (140-440); RED BLOOD COUNT 4.96 X10'6 (4.70-6.10); RED CELL DISTRIBUTION WIDTH 13.2 % (11.5-14.5); WHITE BLOOD COUNT 4.4 X10'3 (4.5-11.0)
[2021-04-21 09:36] LABS: ALBUMIN/GLOBULIN RATIO 0.7 (1.1-1.5); ALKALINE PHOSPHATASE 64 IU/L (46-116); ANION GAP 16 (8-16); ASPARTATE AMINO TRANSFERASE 31 U/L (10-37); BILIRUBIN,TOTAL 0.3 MG/DL (0.1-1.0); BLOOD UREA NITROGEN 12 MG/DL (7-18); BUN/CREATININE RATIO 14.5 (5.4-32.0); C-REACTIVE PROTEIN 9.55 MG/DL (0.0-0.5); CALCIUM 8.4 MG/DL (8.5-10.1); CHLORIDE 104 MMOL/L (99-107); CREATININE 0.83 MG/DL (0.60-1.10); GLUCOSE 216 MG/DL (70-104); LACTATE DEHYDROGENASE 228 U/L (85-227); MAGNESIUM 2.5 MG/DL (1.5-2.4); POTASSIUM 4.1 MMOL/L (3.5-5.1); SODIUM 143 MMOL/L (135-145); TOTAL PROTEIN 7.2 G/DL (6.4-8.2); eGFR > 90 ML/MIN
[2021-04-21 10:00] VITALS: BP 126/77
[2021-04-21 10:20] LABS: ALANINE AMINOTRANSFERASE 66 U/L (12-78)
[2021-04-21] MEDS: LORazepam 1 MG tablet PO SCH (13:59)
[2021-04-21 14:00] VITALS: BP 129/84
--- NOTE | 2021-04-21 19:08 | NUR ---
REPORT TO DAVID RICHARDSON
[2021-04-21] MEDS: clozapine 100mg tablet PO SCH (21:15)
[2021-04-21 22:00] VITALS: BP 126/69
[2021-04-22 02:00] VITALS: BP 106/60
[2021-04-22 06:07] LABS: BASOPHILS # (AUTO) 0.1 X10'3 (0-0.2); BASOPHILS % (AUTO) 1.2 % (0-1); EOSINOPHILS % (AUTO) 0.4 % (0-6); HEMOGLOBIN 14.6 g/dl (14.0-17.9); LYMPHOCYTES # (AUTO) 0.8 X10'3 (1.1-4.8); MEAN CORPUSCULAR HEMOGLOBIN 30.7 PG (27.0-31.0); MEAN CORPUSCULAR VOLUME 90.4 FL (78-98); MEAN PLATELET VOLUME 9.7 FL (7.4-10.4); MONOCYTES # (AUTO) 0.2 X10'3 (0-0.9); MONOCYTES % (AUTO) 3.7 % (2-12); NEUTROPHILS # (AUTO) 5.2 X10'3 (1.8-7.7); NEUTROPHILS % (AUTO) 81.7 % (42-75); PLATELET COUNT 292 X10'3 (140-440); RED BLOOD COUNT 4.76 X10'6 (4.70-6.10); RED CELL DISTRIBUTION WIDTH 12.9 % (11.5-14.5); WHITE BLOOD COUNT 6.4 X10'3 (4.5-11.0)
[2021-04-22 06:19] LABS: ALANINE AMINOTRANSFERASE 64 U/L (12-78); ALBUMIN/GLOBULIN RATIO 0.9 (1.1-1.5); ALKALINE PHOSPHATASE 59 IU/L (46-116); ANION GAP 7 (8-16); ASPARTATE AMINO TRANSFERASE 26 U/L (10-37); BILIRUBIN,TOTAL 0.2 MG/DL (0.1-1.0); BLOOD UREA NITROGEN 16 MG/DL (7-18); CALCIUM 8.5 MG/DL (8.5-10.1); CHLORIDE 105 MMOL/L (99-107); CREATININE 0.64 MG/DL (0.60-1.10); GLUCOSE 131 MG/DL (70-104); LACTATE DEHYDROGENASE 230 U/L (85-227); MAGNESIUM 2.6 MG/DL (1.5-2.4); POTASSIUM 3.9 MMOL/L (3.5-5.1); SODIUM 141 MMOL/L (135-145); TOTAL CARBON DIOXIDE 28.6 MMOL/L (24-32); TOTAL PROTEIN 6.5 G/DL (6.4-8.2); eGFR > 90 ML/MIN
--- NOTE | 2021-04-22 06:45 | NUR ---
Patient in room ORTHO 4024. I have received report from Kenn and had the opportunity to ask questions and assume patient care.
[2021-04-22 07:09] VITALS: BP 104/52
--- NOTE | 2021-04-22 07:57 | NUR ---
Initial: Pt transferred from [facility] w/ Covid per EMR. Pt currently on Regular/gluten free diet w/ mostly 100% intake of meals meeting needs. Currently on room air per documentation. LBM 04/20 receiving routine colace. No nutrition intervention implemented at this time, will continue to monitor. Recs: 1. Continue Regular/Gluten free diet as tolerated 2. Monitor need for additional protein 3. Bowel care per rx 4. Weekly wts Addendum: 04/22/21 at [address] Amended: Links added.
[2021-04-22] MEDS: K and/or MAG REPLACEMENT MC SCH ×2 (08:00→20:00)
[2021-04-22] MEDS: docusate sod 100mg capsule PO SCH ×2 (08:01→20:59)
[2021-04-22] MEDS: divalproex sodium 500mg tablet.DR PO SCH ×2 (08:01→20:59)
[2021-04-22] MEDS: metoprolol tartrate 25mg tablet PO SCH ×2 (08:01→21:05)
[2021-04-22] MEDS: dexamethasone inj 6 MG in dextrose 5%-water 100 ML IV SCH ×2 (08:02→21:05)
[2021-04-22] MEDS: LORazepam 0.5 MG tablet PO SCH ×2 (08:02→20:59)
[2021-04-22] MEDS: clozapine 25mg tablet PO SCH ×3 (08:02→20:59)
[2021-04-22] MEDS: enoxaparin 40mg/0.4ml syringe SUBCUT SCH ×2 (08:05→20:59)
[2021-04-22] MEDS: REMDESIVIR INJ 100 MG in normal saline 100ml IV soln 100 ML IV SCH (09:00)
[2021-04-22 11:19] VITALS: BP 101/61
[2021-04-22 11:30] LABS: APTT 27 SECONDS (22-32); D-DIMER 2.23 MG/L FEU (0-0.50)
[2021-04-22] MEDS: LORazepam 1 MG tablet PO SCH (13:10)
--- NOTE | 2021-04-22 14:42 | NUR ---
PAGER ID: [phone] MESSAGE: KEVIN TABARES [phone] RE: [id number] COLEMAN, Did you mean to place 1799 on this patient or the one in 4022b? Thanks
[2021-04-22 15:41] VITALS: BP 133/88
[2021-04-22 18:00] VITALS: BP 124/73
--- NOTE | 2021-04-22 18:36 | NUR ---
Problems reprioritized. Patient report given, questions answered & plan of care reviewed with Kenn RICHARDSON.
[2021-04-22] MEDS: clozapine 100mg tablet PO SCH (20:59)
[2021-04-22 22:00] VITALS: BP 134/92
[2021-04-23 06:34] VITALS: BP 114/72
--- NOTE | 2021-04-23 06:49 | NUR ---
Received report from Odell RICHARDSON
[2021-04-23] MEDS: divalproex sodium 500mg tablet.DR PO SCH ×2 (07:26→20:59)
[2021-04-23] MEDS: metoprolol tartrate 25mg tablet PO SCH ×2 (07:27→20:59)
[2021-04-23] MEDS: docusate sod 100mg capsule PO SCH ×2 (07:27→20:59)
[2021-04-23] MEDS: enoxaparin 40mg/0.4ml syringe SUBCUT SCH ×2 (07:27→21:00)
[2021-04-23] MEDS: LORazepam 0.5 MG tablet PO SCH ×2 (07:27→20:59)
[2021-04-23] MEDS: dexamethasone inj 6 MG in dextrose 5%-water 100 ML IV SCH ×2 (07:27→21:06)
[2021-04-23] MEDS: clozapine 25mg tablet PO SCH ×3 (07:27→20:58)
[2021-04-23] MEDS: K and/or MAG REPLACEMENT MC SCH ×2 (08:00→20:00)
[2021-04-23 08:42] LABS: BASOPHILS % (AUTO) 0.1 % (0-1); EOSINOPHILS % (AUTO) 0 % (0-6); HEMATOCRIT 43.6 % (42.0-52.0); HEMOGLOBIN 14.8 g/dl (14.0-17.9); LYMPHOCYTES # (AUTO) 1.2 X10'3 (1.1-4.8); MEAN CORPUSCULAR HEMOGLOBIN 30.8 PG (27.0-31.0); MEAN CORPUSCULAR HGB CONC 33.8 g/dL (33.0-36.5); MEAN CORPUSCULAR VOLUME 91.1 FL (78-98); MEAN PLATELET VOLUME 9.4 FL (7.4-10.4); MONOCYTES # (AUTO) 0.5 X10'3 (0-0.9); MONOCYTES % (AUTO) 7.5 % (2-12); NEUTROPHILS # (AUTO) 5.1 X10'3 (1.8-7.7); NEUTROPHILS % (AUTO) 74.4 % (42-75); PLATELET COUNT 324 X10'3 (140-440); RED BLOOD COUNT 4.79 X10'6 (4.70-6.10); WHITE BLOOD COUNT 6.9 X10'3 (4.5-11.0)
[2021-04-23 08:58] LABS: ALANINE AMINOTRANSFERASE 57 U/L (12-78); ALBUMIN 2.9 G/DL (3.4-5.0); ALBUMIN/GLOBULIN RATIO 0.8 (1.1-1.5); ALKALINE PHOSPHATASE 55 IU/L (46-116); ANION GAP 10 (8-16); ASPARTATE AMINO TRANSFERASE 23 U/L (10-37); BILIRUBIN,TOTAL 0.2 MG/DL (0.1-1.0); BLOOD UREA NITROGEN 15 MG/DL (7-18); BUN/CREATININE RATIO 28.3 (5.4-32.0); C-REACTIVE PROTEIN 1.71 MG/DL (0.0-0.5); CALCIUM 7.9 MG/DL (8.5-10.1); CHLORIDE 108 MMOL/L (99-107); CREATININE 0.53 MG/DL (0.60-1.10); GLUCOSE 113 MG/DL (70-104); LACTATE DEHYDROGENASE 227 U/L (85-227); MAGNESIUM 2.4 MG/DL (1.5-2.4); POTASSIUM 3.7 MMOL/L (3.5-5.1); SODIUM 145 MMOL/L (135-145); TOTAL CARBON DIOXIDE 26.9 MMOL/L (24-32); TOTAL PROTEIN 6.5 G/DL (6.4-8.2); eGFR > 90 ML/MIN
[2021-04-23 09:09] LABS: D-DIMER < 0.19 MG/L FEU (0-0.50)
[2021-04-23 10:00] VITALS: BP 104/60
[2021-04-23] MEDS: LORazepam 1 MG tablet PO SCH (12:37)
[2021-04-23 14:00] VITALS: BP 109/55
[2021-04-23] MEDS ORDERED: iohexol 350MG/ML 100ml bottle IV ONE (17:01)
[2021-04-23 18:00] VITALS: BP 111/67
--- NOTE | 2021-04-23 18:32 | NUR ---
Gave report to Riri RICHARDSON
[2021-04-23] MEDS: clozapine 100mg tablet PO SCH (20:58)
[2021-04-23 22:00] VITALS: BP 124/78
[2021-04-24 02:00] VITALS: BP 124/78
[2021-04-24 06:00] VITALS: BP 122/78
--- NOTE | 2021-04-24 06:33 | NUR ---
REPORT TO [facility]
[2021-04-24] MEDS: K and/or MAG REPLACEMENT MC SCH ×2 (08:00→20:00)
[2021-04-24 08:12] LABS: BASOPHILS % (AUTO) 0.4 % (0-1); EOSINOPHILS % (AUTO) 0 % (0-6); HEMATOCRIT 44.7 % (42.0-52.0); HEMOGLOBIN 15.5 g/dl (14.0-17.9); LYMPHOCYTES # (AUTO) 1.8 X10'3 (1.1-4.8); LYMPHOCYTES % (AUTO) 20.6 % (21-51); MEAN CORPUSCULAR HEMOGLOBIN 31.2 PG (27.0-31.0); MEAN CORPUSCULAR HGB CONC 34.7 g/dL (33.0-36.5); MEAN PLATELET VOLUME 8.9 FL (7.4-10.4); MONOCYTES # (AUTO) 0.6 X10'3 (0-0.9); MONOCYTES % (AUTO) 7.3 % (2-12); NEUTROPHILS # (AUTO) 6.3 X10'3 (1.8-7.7); NEUTROPHILS % (AUTO) 71.7 % (42-75); PLATELET COUNT 364 X10'3 (140-440); RED BLOOD COUNT 4.97 X10'6 (4.70-6.10); RED CELL DISTRIBUTION WIDTH 13.2 % (11.5-14.5); WHITE BLOOD COUNT 8.7 X10'3 (4.5-11.0)
[2021-04-24] MEDS: dexamethasone inj 6 MG in dextrose 5%-water 100 ML IV SCH ×2 (08:36→21:42)
[2021-04-24] MEDS: clozapine 25mg tablet PO SCH ×3 (08:37→21:42)
[2021-04-24] MEDS: divalproex sodium 500mg tablet.DR PO SCH ×2 (08:37→21:43)
[2021-04-24] MEDS: LORazepam 0.5 MG tablet PO SCH ×2 (08:37→21:43)
[2021-04-24] MEDS: metoprolol tartrate 25mg tablet PO SCH ×2 (08:38→21:44)
[2021-04-24] MEDS: docusate sod 100mg capsule PO SCH ×2 (08:38→21:43)
[2021-04-24 08:39] LABS: ALANINE AMINOTRANSFERASE 70 U/L (12-78); ALBUMIN 3.1 G/DL (3.4-5.0); ALBUMIN/GLOBULIN RATIO 0.8 (1.1-1.5); ALKALINE PHOSPHATASE 61 IU/L (46-116); ANION GAP 10 (8-16); ASPARTATE AMINO TRANSFERASE 29 U/L (10-37); BILIRUBIN,TOTAL 0.2 MG/DL (0.1-1.0); BLOOD UREA NITROGEN 19 MG/DL (7-18); BUN/CREATININE RATIO 33.3 (5.4-32.0); CALCIUM 8.1 MG/DL (8.5-10.1); CHLORIDE 108 MMOL/L (99-107); CREATININE 0.57 MG/DL (0.60-1.10); GLUCOSE 106 MG/DL (70-104); POTASSIUM 4.1 MMOL/L (3.5-5.1); SODIUM 144 MMOL/L (135-145); TOTAL CARBON DIOXIDE 26.3 MMOL/L (24-32); TOTAL PROTEIN 6.9 G/DL (6.4-8.2); eGFR > 90 ML/MIN
[2021-04-24] MEDS: enoxaparin 40mg/0.4ml syringe SUBCUT SCH ×2 (08:39→21:43)
[2021-04-24 11:00] VITALS: BP 113/65
[2021-04-24] MEDS: LORazepam 1 MG tablet PO SCH (13:30)
[2021-04-24 14:00] VITALS: BP 119/69
[2021-04-24 14:09] LABS: C-REACTIVE PROTEIN 0.82 MG/DL (0.0-0.5); LACTATE DEHYDROGENASE 372 U/L (85-227)
[2021-04-24 15:23] LABS: D-DIMER < 0.19 MG/L FEU (0-0.50)
[2021-04-24 18:00] VITALS: BP 116/72
--- NOTE | 2021-04-24 18:50 | NUR ---
Patient in room ORTHO 4024. I have received report from CHELSI RICHARDSON and had the opportunity to ask questions and assume patient care.
[2021-04-24] MEDS: clozapine 100mg tablet PO SCH (21:42)
[2021-04-24 22:00] VITALS: BP 116/73
--- NOTE | 2021-04-25 05:58 | NUR ---
Problems reprioritized. Patient report given, questions answered & plan of care reviewed with LOLY RICHARDSON.
[2021-04-25 06:00] VITALS: BP 111/70
[2021-04-25] MEDS: docusate sod 100mg capsule PO SCH ×2 (08:00→19:45)
[2021-04-25] MEDS: K and/or MAG REPLACEMENT MC SCH ×2 (08:00→20:00)
[2021-04-25 10:00] VITALS: BP 117/76
[2021-04-25] MEDS: metoprolol tartrate 25mg tablet PO SCH ×2 (10:04→19:47)
[2021-04-25] MEDS: LORazepam 0.5 MG tablet PO SCH ×2 (10:04→19:45)
[2021-04-25] MEDS: clozapine 25mg tablet PO SCH ×3 (10:05→19:46)
[2021-04-25] MEDS: divalproex sodium 500mg tablet.DR PO SCH ×2 (10:05→19:45)
[2021-04-25] MEDS: enoxaparin 40mg/0.4ml syringe SUBCUT SCH (10:06)
[2021-04-25] MEDS: dexamethasone inj 6 MG in dextrose 5%-water 100 ML IV SCH (10:06)
[2021-04-25 12:51] LABS: C-REACTIVE PROTEIN 0.34 MG/DL (0.0-0.5)
[2021-04-25 12:53] LABS: D-DIMER 0.35 MG/L FEU (0-0.50)
[2021-04-25] MEDS: LORazepam 1 MG tablet PO SCH (14:17)
[2021-04-25 18:00] VITALS: BP 111/70
[2021-04-25 18:15] VITALS: BP 118/78
--- NOTE | 2021-04-25 18:32 | NUR ---
Problems reprioritized. Patient report given, questions answered & plan of care reviewed with DEBRA Correa.
[2021-04-25] MEDS: clozapine 100mg tablet PO SCH (19:45)
[2021-04-25 22:00] VITALS: BP 108/58
[2021-04-26 02:00] VITALS: BP 118/73
--- NOTE | 2021-04-26 06:38 | NUR ---
Patient in room ORTHO 4024. I have received report from Madeline RN and had the opportunity to ask questions and assume patient care.
--- NOTE | 2021-04-26 06:43 | NUR ---
0600 am vitals are the same as 0200 vitals, I will recheck patient vitals
[2021-04-26] MEDS: K and/or MAG REPLACEMENT MC SCH ×2 (08:00→20:00)
[2021-04-26] MEDS ORDERED: dexamethasone 4mg tablet PO SCH (08:00)
[2021-04-26] MEDS ORDERED: enoxaparin 40mg/0.4ml syringe SUBCUT SCH (08:00)
[2021-04-26] MEDS: clozapine 25mg tablet PO SCH ×3 (09:22→21:12)
[2021-04-26] MEDS: LORazepam 0.5 MG tablet PO SCH ×2 (09:22→21:15)
[2021-04-26] MEDS: docusate sod 100mg capsule PO SCH ×2 (09:23→21:15)
[2021-04-26] MEDS: divalproex sodium 500mg tablet.DR PO SCH ×2 (09:23→21:15)
[2021-04-26] MEDS: metoprolol tartrate 25mg tablet PO SCH ×2 (09:24→21:15)
[2021-04-26 10:00] VITALS: BP 114/69
[2021-04-26] MEDS: LORazepam 1 MG tablet PO SCH (13:26)
[2021-04-26 13:41] LABS: D-DIMER < 0.19 MG/L FEU (0-0.50)
[2021-04-26 13:42] LABS: C-REACTIVE PROTEIN 0.18 MG/DL (0.0-0.5)
[2021-04-26 13:53] LABS: URINE AMPHETAMINE SCREEN NEGATIVE (Neg); URINE BARBITUATE SCREEN NEGATIVE (Neg); URINE BENZODIAZEPINES SCREEN NEGATIVE (Neg); URINE CANNABINOID SCREEN NEGATIVE (Neg); URINE COCAINE SCREEN NEGATIVE (Neg); URINE METHADONE SCREEN NEGATIVE (Neg); URINE OPIATE SCREEN NEGATIVE (Neg); URINE PHENCYCLIDINE SCREEN NEGATIVE (Neg)
[2021-04-26] MEDS ORDERED: DEC4T PO (15:09)
[2021-04-26] MEDS ORDERED: acetaminophen 325mg tablet PO PRN ×2 (16:50)
[2021-04-26] MEDS ORDERED: magnesium hydroxide 30ml (MOM) UD suspension PO PRN (16:50)
[2021-04-26] MEDS ORDERED: mag hydrox/Alum hydrox/simeth 30ml oral suspension PO PRN (16:50)
[2021-04-26] MEDS ORDERED: loperamide 2mg capsule PO PRN (16:50)
--- NOTE | 2021-04-26 17:50 | NUR ---
Admission Note: Pt readmitted to [facility] after clearing COVID quarantine and being reevaluated by [facility] and place on a 5150 for grave disability: "Christian is unable to formulate plan for food, clothing and chcf. He has not benefitted from family assistance in these areas" Pt cooperative with admission. Skin check completed by Nanette.
--- NOTE | 2021-04-26 18:02 | NUR ---
Problems reprioritized. Patient report given, questions answered & plan of care reviewed with Gabriele In [facility].
[2021-04-26 19:21] VITALS: BP 137/85
[2021-04-26] MEDS: clozapine 100mg tablet PO SCH (21:12)
[2021-04-26 21:15] VITALS: BP_SYST 106
--- NOTE | 2021-04-27 02:22 | NUR ---
Nursing Progress Note: Legal hold: 5150 Client on involuntary status for GD Report received from Gabriele AGUAYO with use of SBAR Why are they here: Pt admitted on a 5150 for GD. He cannot make a viable plan for food or snf when discharged. Denies all Mental health symptoms Pt admitted to Behavioral health from our ED on 02-23 for an increase in psychotic symptoms and passive SI at home. He was transferred on 03-11 to a medical unit for fever and increased HR. He returned to on 03-12. He was transferred to a medical unit on 04-19 for Covid infection and returned to on 04-26. Assessment What has happened this shift: Pt up on unit at start of shift went to bed early "I'm trying to get over being sick Pt pleasant and cooperative with admit process. Ate snack took all medications. S/I, H/I: denies A/VH: denies Sleep: asleep at this time ADL's: independent Group attendance: NA Were meds taken: Yes Any med S/E No Mental Status Exam Appearance: Dressed in scrubs Eye contact: Fair Behavior: pleasant and cooperative Speech: Clear Mood: "good" Affect: Blunted Thought process: Linear Thought Content: Getting over being sick Cognition: Autistic Insight: Fair Judgment: Fair Interventions PRN's used: none Therapeutic interventions: 1:1 assessment, therapeutic communication, active listening, medication administration/education/monitoring, encouragement to come to meals, encouragement with autonomy in ADLs, encouragement to participate in unit activities and attend groups, provided encouragement, distraction, redirection, positive reinforcement and Q15 minute safety checks. Restraints/seclusion/emergency medication: None Justification of Continued Inpatient Treatment: Pt is gravely disabled, he requires medication adjustments in a safe and supportive environment,
== END 2021-04-26 15:13 | DRG 137 ==
LOC: ORTHO 4S 16:54 → UNDOADMIN 16:54 → ORTHO 4S 04-20 14:15 → ADULT MH 04-26 15:00 → ORTHO 4S 04-26 15:00 → UNDODISIN 04-26 15:13
PROVIDERS: ADMIT Family Medicine; ATTEND Psychiatry & Neurology Neurology with Special Qualifications in Child Neurology
PROC: XW033E5 Introduction of Remdesivir Anti-infective into Peripheral Vein, Percutaneous Approach, New Technology Group 5 (ICD-10-PCS; principal; 2021-04-20)
DX: U07.1 COVID-19 (principal); J12.82 Pneumonia due to coronavirus disease 2019; F25.9 Schizoaffective disorder, unspecified; F42.9 Obsessive-compulsive disorder, unspecified; F84.0 Autistic disorder; R00.0 Tachycardia, unspecified; Z87.440 Personal history of urinary (tract) infections; Z88.8 Allergy status to other drugs, medicaments and biological substances; Z79.899 Other long term (current) drug therapy
CPT/HCPCS: 36415; 71045; 80053; 80305; 82728; 83615; 83735; 84132; 84145; 85007; 85025; 85379; 85610; 85730; 86140; 87081; G0378; J1100; J1650; J2405; J3490; J7030; J7060; J8540; Q9967

== ENCOUNTER 2021-04-26 15:15 | Inpatient (IN) | payer MEDICAID ==
[~2021-04-26] VITALS: Ht 175.3 cm; Wt 95.2 kg
[~2021-04-26 15:15] MED LIST changes: +ATI1T PO; +CLOZ100T13 PO; +CLOZ100T21 PO; +CLOZ25TA12 PO; +CLOZ25TA36 PO; +CLOZ25TA5 PEG; +DEC4T PO; +DIVA250T4 PO; +DIVA500T28 PO; +LOP12.5T PO; +LOP25T PO; +LORA-269 PO; +Lorazepam PO; +MAG30ORA PO; +MAGN400O6 PO; +NITR0.4T51 SL
[2021-04-27] MEDS ORDERED: magnesium hydroxide 30ml (MOM) UD suspension PO PRN (07:15)
[2021-04-27] MEDS ORDERED: acetaminophen 325mg tablet PO PRN ×2 (07:15)
[2021-04-27] MEDS ORDERED: loperamide 2mg capsule PO PRN (07:15)
[2021-04-27] MEDS ORDERED: mag hydrox/Alum hydrox/simeth 30ml oral suspension PO PRN (07:15)
--- NOTE | 2021-04-27 07:19 | NUR ---
Pt was admitted from Covid unit back to [facility], but admitting kept same V number. Please see interventions and notes for admission on previous V number.
[2021-04-27] MEDS ORDERED: LORazepam 1 MG tablet PO PRN (07:35)
[2021-04-27] MEDS ORDERED: nitroGLYCERIN 0.4mg SUBLingual tab SL PRN (07:35)
[2021-04-27] MEDS: metoprolol tartrate 12.5mg (1/2 tablet) PO SCH ×2 (08:58→20:33)
[2021-04-27] MEDS: divalproex sodium 500mg tablet.DR PO SCH ×2 (09:00→20:34)
[2021-04-27] MEDS: LORazepam 0.5 MG tablet PO SCH (09:00)
[2021-04-27] MEDS: clozapine 25mg tablet PO SCH ×2 (09:00→13:15)
[2021-04-27] MEDS: dexamethasone 4mg tablet PO SCH (10:02)
[2021-04-27] MEDS: LORazepam 1 MG tablet PO SCH (13:15)
--- NOTE | 2021-04-27 14:30 | NUR ---
Nursing Progress Note: MESFIN Legal hold: 5150 Client on involuntary status for GD Report received from DEDE Colin with use of SBAR. Why are they here: Pt admitted to Behavioral health from our ED on 02-23 for an increase in psychotic symptoms and passive SI at home. Pt was transferred on 03-11 to a medical unit for fever and increased HR. Pt returned to on 03-12. Pt was transferred again to a medical unit on 04-19 for Covid infection and returned to on 04-26. Pt admitted on a 5150 for GD. Pt unable make a viable plan for food or care home or clothing when discharged. Denies all mental health symptoms. Assessment What has happened this shift: Received patient sleeping at shift change, no distress noted. Pt woke ate 100% of his breakfast, was compliant and cooperative with medication and care. Pt reports some fatigued, but answers questions appropriately. Pt presents fatigued. Pt even stated I dont feel psychotic. Pt denies all psychotic symptoms just trying to feel better. Pt was observed sitting quietly in the group room watching T.V. Noted no disruptive behaviors. Pt ate his meals in his room. No delusional statements made. S/I, H/I: Pt denies. A/VH: Pt denies. Sleep: 8.5 hours per sleep assessment. Intermittent naps feeling fatigued. ADL's: Independent, requires encouragement. Group attendance: No scheduled group Were meds taken: Yes, without issue. Any med S/E: None reported or observed. Mental Status Exam Appearance: Slightly disheveled, stated he showered at admit yesterday. Dressed in green unit scrubs. Eye contact: Fair Behavior: Fatigued, cooperative, watched T.V. No intrusive behaviors. Speech: Clear, soft, spontaneous. Mood: A little tired. Affect: Blunted Thought process: Linear Thought Content: Getting over being sick Cognition: A&Ox4 Insight: Fair Judgment: Fair Interventions PRN's used: None Therapeutic interventions: 1:1 assessment, therapeutic communication, active listening, medication administration/education/monitoring, encouragement with autonomy in ADLs provided encouragement, distraction, redirection, positive reinforcement and Q15 minute safety checks. Restraints/seclusion/emergency medication: None Justification of Continued Inpatient Treatment: Patient continues to present GD, will continue to monitor ability to provide for food, care home and clothing. Pt requires a safe and supportive milieu, as a safe discharge plan is processed.
[2021-04-27] MEDS: clozapine 100mg tablet PO SCH (21:00)
[2021-04-27] MEDS ORDERED: clozapine 25mg tablet PO PRN (21:00)
[2021-04-27] MEDS ORDERED: LORazepam 0.5 MG tablet PO SCH (21:00)
[2021-04-27] MEDS ORDERED: clozapine 25mg tablet PO SCH (21:00)
--- NOTE | 2021-04-28 00:15 | NUR ---
Nursing Progress Note: MESFIN Legal hold: 5150 Client on involuntary status for GD Report received from DEBRA Suazo with use of SBAR. Why are they here: Pt admitted to Behavioral health from our ED on 02-23 for an increase in psychotic symptoms and passive SI at home. Pt was transferred on 03-11 to a medical unit for fever and increased HR. Pt returned to on 03-12. Pt was transferred again to a medical unit on 04-19 for Covid infection and returned to on 04-26. Pt admitted on a 5150 for GD. Pt unable make a viable plan for food or correction or clothing when discharged. Denies all mental health symptoms. Assessment What has happened this shift: Pt asleep at shift change. 1:1 pt reports feeling fatigued today. Patient able to state which hospital he has been staying at , how long he's been here who the president and tanker serviceman are, his parents name, the date, time and year. Pt denies A/V H, stating he hasn't heard voices in a while. Pt remained in room, refused snack and slept. Pt took medications w/o complications and went back to sleep.Pt isolated to room all shift. S/I, H/I: Pt denies. A/VH: Pt denies. Sleep: See sleep hours ADL's: Independent, requires encouragement. Group attendance: No group in the evenings Were meds taken: Yes, without issue. Any med S/E: None reported or observed. Mental Status Exam Appearance: Slightly disheveled, stated he showered at admit yesterday. Dressed in green unit scrubs. Eye contact: Fair Behavior: Fatigued, cooperative Speech: Clear, soft Mood:fatigued Affect: Blunted Thought process: Linear Thought Content: Getting over being sick Cognition: A&Ox4 Insight: Fair Judgment: Fair Interventions PRN's used: None Therapeutic interventions: 1:1 assessment, therapeutic communication, active listening, medication administration/education/monitoring, encouragement with autonomy in ADLs provided encouragement, distraction, redirection, positive reinforcement and Q15 minute safety checks. Restraints/seclusion/emergency medication: None Justification of Continued Inpatient Treatment: Patient continues to present GD, will continue to monitor ability to provide for food, correction and clothing. Pt requires a safe and supportive milieu, as a safe discharge plan is processed.
[2021-04-28] MEDS: dexamethasone 4mg tablet PO SCH (07:29)
[2021-04-28] MEDS: divalproex sodium 500mg tablet.DR PO SCH ×2 (07:29→20:29)
[2021-04-28] MEDS: LORazepam 0.5 MG tablet PO SCH ×2 (07:31→20:30)
[2021-04-28] MEDS: metoprolol tartrate 12.5mg (1/2 tablet) PO SCH ×2 (07:31→20:29)
[2021-04-28 07:39] VITALS: BP 113/63
[2021-04-28] MEDS: clozapine 25mg tablet PO SCH ×3 (07:55→20:30)
[2021-04-28] MEDS: LORazepam 1 MG tablet PO SCH (13:10)
--- NOTE | 2021-04-28 16:52 | NUR ---
Nursing Progress Note: Christian Medina Legal hold: 5150 Client on involuntary status for GD Report received from DEDE Colin with use of SBAR. Why are they here: Pt admitted on a 5150 for GD. Pt unable make a viable plan for food or senior care or clothing when discharged. Assessment What has happened this shift: Pt. received sleeping in his room, he woke to receive his medications and 1:1 assessment completed at the bedside. He denies SI, HI, and has no A/V, H/V complaints. Pt. reports He was admitted d/t I wasnt doing well, really dark things. He presents with a plan to return to college and go home when discharged. Recent COVID 19 infection recovery with ongoing Decadron r/t left lower lobe pneumonia; he denies SOB, no cough, lungs CTA bilateral. He doesnt appear internally preoccupied. Pt. ate his breakfast in his room, but did get OOB and provided self-care with prompting before proceeding to watch tv sitting quietly with cohorts. Pt ate lunch in the dining room and went to nap shortly after, he continues to present with fatigue since COVID19 infection and recovery. S/I, H/I: Denies. A/VH: Denies. Sleep: 10.7 hours per NOC shift, two naps. ADL's: Independent, requires encouragement. Group attendance: No scheduled group Were meds taken: Yes Any med S/E: None reported or observed. Mental Status Exam Appearance: Slightly disheveled, stated he showered at admit yesterday. Dressed in green unit scrubs. Eye contact: Fair Behavior: Fatigued, cooperative, watched T.V. No intrusive behaviors. Speech: Clear, soft, spontaneous. Mood: A little tired. Affect: Blunted Thought process: Linear Thought Content: Getting over being sick Cognition: A&Ox4 Insight: Fair Judgment: Fair Interventions PRN's used: None Therapeutic interventions: 1:1 assessment, therapeutic communication, active listening, medication administration/education/monitoring, encouragement with autonomy in ADLs provided encouragement, distraction, redirection, positive reinforcement and Q15 minute safety checks. Restraints/seclusion/emergency medication: None Justification of Continued Inpatient Treatment: Patient continues to present GD, will continue to monitor ability to provide for food, senior care and clothing. Pt requires a safe and supportive milieu, as a safe discharge plan is processed.
[2021-04-28 19:26] VITALS: BP 135/82
[2021-04-28] MEDS: clozapine 100mg tablet PO SCH (20:29)
--- NOTE | 2021-04-29 00:37 | NUR ---
Nursing Progress Note: Christian Medina Legal hold: 5150 Client on involuntary status for GD Report received from DEBRA Glover with use of SBAR. Why are they here: Pt admitted on a 5150 for GD. Pt unable make a viable plan for food or assisted or clothing when discharged. Assessment What has happened this shift: Pt sleeping in room at shift change. Patient 1:1 Pt is ready to go home, feels alot better. Pt states that he he feels as if his meds are working now. Denies A/V H. Woke up for snack and ate in community room, pt went to bed shortly after and took evening meds w/o complications. Mostly slept and isolated to room due to ongoing fatigue caused by Covid. S/I, H/I: Denies. A/VH: Denies. Sleep: See sleep hours ADL's: Independent, requires encouragement. Group attendance: No group in the evening Were meds taken: Yes Any med S/E: None reported or observed. Mental Status Exam Appearance: Slightly disheveled, Dressed in green unit scrubs. Eye contact: Fair Behavior: Fatigued, cooperative, No intrusive behaviors. Speech: Clear, soft, spontaneous. Mood: fatigued Affect: Blunted Thought process: Linear Thought Content: Getting over being sick Cognition: A&Ox4 Insight: Fair Judgment: Fair Interventions PRN's used: None Therapeutic interventions: 1:1 assessment, therapeutic communication, active listening, medication administration/education/monitoring, encouragement with autonomy in ADLs provided encouragement, distraction, redirection, positive reinforcement and Q15 minute safety checks. Restraints/seclusion/emergency medication: None Justification of Continued Inpatient Treatment: Patient continues to present GD, will continue to monitor ability to provide for food, assisted and clothing. Pt requires a safe and supportive milieu, as a safe discharge plan is processed.
[2021-04-29] MEDS: metoprolol tartrate 12.5mg (1/2 tablet) PO SCH ×2 (08:00→20:31)
[2021-04-29] MEDS: LORazepam 0.5 MG tablet PO SCH ×3 (08:51→20:29)
[2021-04-29] MEDS: dexamethasone 4mg tablet PO SCH (08:51)
[2021-04-29] MEDS: clozapine 25mg tablet PO SCH ×3 (08:52→20:31)
[2021-04-29] MEDS: divalproex sodium 500mg tablet.DR PO SCH ×2 (09:03→20:31)
--- NOTE | 2021-04-29 16:41 | NUR ---
Nursing Progress Note Legal hold: 5150 Client on involuntary status for GD Report received from RN with use of SBAR Why are they here: Pt admitted on a 5150 for GD. Pt unable make a viable plan for food or longterm or clothing when discharged. Assessment What has happened this shift: Received Pt in bed sleeping w/o distress. Pt woke for vitals and was cooperative before returning to sleep. Pt took AM meds w/o issue and ate all of breakfast and lunch as well. Pt fatigued and slept most of the day in bed. Pt engaged in assessment with clear speech and did not ruminate on spiritual issues or delusions of grandeur. Pt is has some clear and insightful thoughts about when he was actively hearing voices and delusional. Pt stayed in bed most of the day. S/I, H/I: Denies A/VH: Denies Sleep: Napped most of shift ADL's: Independent, requires encouragement Group attendance: No scheduled group Were meds taken: Yes Any med S/E: None reported or observed Mental Status Exam Appearance: Disheveled, in green unit scrubs Eye contact: Fair Behavior: Fatigued, cooperative, stayed in bed Speech: Clear, coherent Mood: Fatigued Affect: Blunted Thought process: Linear Thought Content: Going home, school Cognition: A&Ox4 Insight: Fair Judgment: Fair Interventions PRN's used: None Therapeutic interventions: 1:1 assessment, therapeutic communication, active listening, medication administration/education/monitoring, encouragement with autonomy in ADLs provided encouragement, distraction, redirection, positive reinforcement and Q15 minute safety checks. Restraints/seclusion/emergency medication: None Justification of Continued Inpatient Treatment: Patient continues to present GD, will continue to monitor ability to provide for food, longterm and clothing. Pt requires a safe and supportive milieu, as a safe discharge plan is processed.
[2021-04-29] MEDS: clozapine 100mg tablet PO SCH (20:31)
--- NOTE | 2021-04-29 23:48 | NUR ---
Nursing Progress Note Legal hold: 5150 Client on involuntary status for GD Report received from Johnathan RICHARDSON with use of SBAR Why are they here: Pt admitted on a 5150 for GD. Pt unable make a viable plan for food or senior care or clothing when discharged. Assessment What has happened this shift: Pt in bed at change of shift. Pt woke up for 1:1, pt reports not hearing voices and stated what he ate for dinner this day. Pt went back to sleep. Pt woken for medication administration. Pt listened while this nurse explained the parameters surrounding his heart medication (metoprolol) Pt listened attentively and engaged when taking his BP and pulse. Pt went back to sleep shortly after taking evening meds w/o complications. S/I, H/I: Denies A/VH: Denies Sleep: See sleep hours ADL's: Independent, requires encouragement Group attendance: No group in the evenings Were meds taken: Yes Any med S/E: None reported or observed Mental Status Exam Appearance: Disheveled, in green unit scrubs Eye contact: Fair Behavior: Fatigued, cooperative, stayed in bed Speech: Clear, coherent Mood: Fatigued Affect: Blunted Thought process: Linear Thought Content: Going home, school Cognition: A&Ox4 Insight: Fair Judgment: Fair Interventions PRN's used: None Therapeutic interventions: 1:1 assessment, therapeutic communication, active listening, medication administration/education/monitoring, encouragement with autonomy in ADLs provided encouragement, distraction, redirection, positive reinforcement and Q15 minute safety checks. Restraints/seclusion/emergency medication: None Justification of Continued Inpatient Treatment: Patient continues to present GD, will continue to monitor ability to provide for food, senior care and clothing. Pt requires a safe and supportive milieu, as a safe discharge plan is processed.
[2021-04-30] MEDS: dexamethasone 4mg tablet PO SCH (08:20)
[2021-04-30] MEDS: divalproex sodium 500mg tablet.DR PO SCH ×2 (08:20→21:00)
[2021-04-30] MEDS: metoprolol tartrate 12.5mg (1/2 tablet) PO SCH ×2 (08:20→20:59)
[2021-04-30] MEDS: clozapine 25mg tablet PO SCH ×3 (08:21→21:00)
[2021-04-30] MEDS: LORazepam 0.5 MG tablet PO SCH ×3 (08:21→21:01)
[2021-04-30 08:23] VITALS: BP 122/70
--- NOTE | 2021-04-30 16:57 | NUR ---
Initial: Pt admit for schizoaffective disorder. Positive for COVID 04/18 per EMR. Currently on a regular diet and not receiving gluten d/t reported intolerance. Pt eating well with 100% PO intake throughout LOS. LBM 04/27 with PRN bowel care available. D/w dietary to send prunes and prune juice with next meal to assist with bowel regularity. Will continue to follow and monitor need for further nutrition intervention. Recommendations: 1) Continue regular diet 2) Utilize PRN bowel care; consider routine bowel care 3) Weekly scaled weights Addendum: 04/30/21 at [address] Amended: Links added.
--- NOTE | 2021-04-30 16:57 | NUR ---
Nursing Progress Note Legal hold: 5150 Client on involuntary status for GD Report received from Johnathan RICHARDSON with use of SBAR Why are they here: Pt admitted on a 5150 for GD. Pt unable make a viable plan for food or nursing home or clothing when discharged. Assessment What has happened this shift: For the first half of the shift pt spends day sleeping in bed. After lunch pt wakes and reads a book in bed. PT talks with his mother on the phone and Dr Jaramillo speaks with her on phone. Dr Jaramillo states pt is improving and plan for discharge is next week. Pt ambulating the halls talking on phone. No delusional statements made today. Pt polite and thankful. S/I, H/I: Denies A/VH: Denies Sleep: See sleep hours ADL's: Independent, requires encouragement Group attendance: No group in the evenings Were meds taken: Yes Any med S/E: None reported or observed Mental Status Exam Appearance: Disheveled, in green unit scrubs Eye contact: Fair Behavior: Fatigued, cooperative, stayed in bed Speech: Clear, coherent Mood: Fatigued Affect: Blunted Thought process: Linear Thought Content: Going home, school Cognition: A&Ox4 Insight: Fair Judgment: Fair Interventions PRN's used: None Therapeutic interventions: 1:1 assessment, therapeutic communication, active listening, medication administration/education/monitoring, encouragement with autonomy in ADLs provided encouragement, distraction, redirection, positive reinforcement and Q15 minute safety checks. Restraints/seclusion/emergency medication: None Justification of Continued Inpatient Treatment: Patient continues to present GD, will continue to monitor ability to provide for food, nursing home and clothing. Pt requires a safe and supportive milieu, as a safe discharge plan is processed.
[2021-04-30] MEDS: clozapine 100mg tablet PO SCH (21:00)
--- NOTE | 2021-05-01 03:56 | NUR ---
Nursing Progress Note Legal hold: 5150 Client on involuntary status for GD Report received from Johnathan RICHARDSON with use of SBAR Why are they here: Pt admitted on a 5150 for GD. Pt unable make a viable plan for food or group home or clothing when discharged. Assessment What has happened this shift: Pt. did not leave room for the duration of the shift, found resting at the beginning of the shift. Patient was pleasant and compliant with medications, and had a snack. Patient made no complaints re: symptoms or other grievances. Patient returned to sleep after med pass. S/I, H/I: Denies A/VH: Denies Sleep: See sleep hours ADL's: Independent, requires encouragement Group attendance: No group in the evenings Were meds taken: Yes Any med S/E: None reported or observed Mental Status Exam Appearance: Disheveled, in green unit scrubs Eye contact: low, but patient was woken up and focused on medication cup Behavior: Fatigued, cooperative, stayed in bed Speech: Clear, coherent Mood: Fatigued Affect: Blunted Thought process: Linear Thought Content: feeling good, liking ad copy writer's name (Aneesh) Cognition: A&Ox4 Insight: Fair Judgment: Fair Interventions PRN's used: None Therapeutic interventions: 1:1 assessment, therapeutic communication, active listening, medication administration/education/monitoring, encouragement with autonomy in ADLs provided encouragement, distraction, redirection, positive reinforcement and Q15 minute safety checks. Restraints/seclusion/emergency medication: None Justification of Continued Inpatient Treatment: Patient continues to present GD, will continue to monitor ability to provide for food, group home and clothing. Pt requires a safe and supportive milieu, as a safe discharge plan is processed.
[2021-05-01] MEDS: metoprolol tartrate 12.5mg (1/2 tablet) PO SCH ×2 (08:00→19:57)
[2021-05-01] MEDS: LORazepam 0.5 MG tablet PO SCH ×3 (08:09→19:54)
[2021-05-01] MEDS: clozapine 25mg tablet PO SCH ×3 (08:09→19:59)
[2021-05-01] MEDS: dexamethasone 4mg tablet PO SCH (08:09)
[2021-05-01] MEDS: divalproex sodium 500mg tablet.DR PO SCH ×2 (08:10→20:00)
[2021-05-01 10:28] LABS: BASOPHILS % (AUTO) 0.3 % (0-1); EOSINOPHILS # (AUTO) 0.1 X10'3 (0-0.9); EOSINOPHILS % (AUTO) 0.8 % (0-6); HEMOGLOBIN 15.7 g/dl (14.0-17.9); LYMPHOCYTES # (AUTO) 2.6 X10'3 (1.1-4.8); LYMPHOCYTES % (AUTO) 24.9 % (21-51); MEAN CORPUSCULAR HEMOGLOBIN 30.9 PG (27.0-31.0); MEAN CORPUSCULAR HGB CONC 34.2 g/dL (33.0-36.5); MEAN CORPUSCULAR VOLUME 90.4 FL (78-98); MEAN PLATELET VOLUME 9.2 FL (7.4-10.4); MONOCYTES # (AUTO) 0.8 X10'3 (0-0.9); MONOCYTES % (AUTO) 7.7 % (2-12); NEUTROPHILS % (AUTO) 66.3 % (42-75); PLATELET COUNT 343 X10'3 (140-440); RED BLOOD COUNT 5.09 X10'6 (4.70-6.10); RED CELL DISTRIBUTION WIDTH 13.1 % (11.5-14.5); WHITE BLOOD COUNT 10.5 X10'3 (4.5-11.0)
--- NOTE | 2021-05-01 17:03 | NUR ---
Nursing Progress Note Legal hold: 5150 Client on involuntary status for GD Report received from DEBRA Vasquez with use of SBAR Why are they here: Pt admitted on a 5150 for GD. Pt unable make a viable plan for food or fci or clothing when discharged. Assessment What has happened this shift: Received pt. sleeping in bed at shift change. Patient awakens for breakfast and sits with peers while eating. Patient able to answer questions appropriately. Patient then goes back to bed for a long nap until lunch. Patient then laid down for another nap, and now is awake and resting. S/I, H/I: Denies A/VH: Denies Sleep: 9 hours at NOC, napped. ADL's: Independent, requires encouragement Group attendance: No groups Were meds taken: Yes Any med S/E: None reported or observed Mental Status Exam Appearance: Disheveled, in green unit scrubs Eye contact: Fair Behavior: Fatigued, cooperative Speech: Clear, coherent Mood: Fatigued Affect: Blunted Thought process: Linear Thought Content: Going home Cognition: A&Ox4 Insight: Fair Judgment: Fair Interventions PRN's used: None Therapeutic interventions: 1:1 assessment, therapeutic communication, active listening, medication administration/education/monitoring, encouragement with autonomy in ADLs provided encouragement, distraction, redirection, positive reinforcement and Q15 minute safety checks. Restraints/seclusion/emergency medication: None Justification of Continued Inpatient Treatment: Patient continues to present GD, will continue to monitor ability to provide for food, fci and clothing. Pt requires a safe and supportive milieu, as a safe discharge plan is processed.
[2021-05-01 19:27] VITALS: BP 121/75
[2021-05-01] MEDS: clozapine 100mg tablet PO SCH (19:57)
--- NOTE | 2021-05-02 03:11 | NUR ---
Nursing Progress Note Legal hold: vol Client on involuntary status for GD Report received from Johnathan RICHARDSON with use of SBAR Why are they here: Pt admitted on a 5150 for GD. Pt unable make a viable plan for food or penitentiary or clothing when discharged. Assessment What has happened this shift: Pt isolated to his room for the entirety of the shift. He mainly slept. He woke up and was cooperative for 1:1 assessment. He was linear and polite. He denies SI/HI/AH/VH Patient returned to sleep after med pass. S/I, H/I: Denies A/VH: Denies Sleep: See sleep hours ADL's: Independent, requires encouragement Group attendance: No group in the evenings Were meds taken: Yes Any med S/E: None reported or observed Mental Status Exam Appearance: WNL Eye contact: indirect Behavior: Fatigued, cooperative, stayed in bed Speech: Clear, coherent Mood: Fatigued Affect: Blunted Thought process: Linear Thought Content: WNL Cognition: A&Ox4 Insight: Fair Judgment: Fair Interventions PRN's used: None Therapeutic interventions: 1:1 assessment, therapeutic communication, active listening, medication administration/education/monitoring, encouragement with autonomy in ADLs provided encouragement, distraction, redirection, positive reinforcement and Q15 minute safety checks. Restraints/seclusion/emergency medication: None Justification of Continued Inpatient Treatment: Patient continues to present GD, will continue to monitor ability to provide for food, penitentiary and clothing. Pt requires a safe and supportive milieu, as a safe discharge plan is processed.
[2021-05-02 07:55] VITALS: BP 96/51
[2021-05-02] MEDS: clozapine 25mg tablet PO SCH ×3 (08:06→20:10)
[2021-05-02] MEDS: LORazepam 0.5 MG tablet PO SCH ×3 (08:07→20:10)
[2021-05-02] MEDS: divalproex sodium 500mg tablet.DR PO SCH ×2 (08:07→20:10)
[2021-05-02] MEDS: dexamethasone 4mg tablet PO SCH (08:07)
[2021-05-02 08:21] VITALS: BP 110/80
[2021-05-02] MEDS: metoprolol tartrate 12.5mg (1/2 tablet) PO SCH ×2 (08:22→20:11)
--- NOTE | 2021-05-02 14:51 | NUR ---
Nursing Progress Note: Christian Legal hold: Voluntary Report received from DEBRA Mendoza with use of SBAR Why are they here: Pt admitted on a 5150 for GD. Pt unable make a viable plan for food or fdc or clothing when discharged. Assessment What has happened this shift: Received patient sleeping at shift change, no distress noted. Pt remains in his room most of the shift, comes out for meals and snacks. Pt presents as fatigued Im just recovering. Pt intermittently sleeps throughout the shift. Pt made no delusional remarks today. Pt presents with linear thought process, states he is going home sometime this next week. S/I, H/I: Denies both. A/VH: Denies both. Sleep: 8.5 per sleep assessment. Intermittent naps. Easy to arouse. ADL's: Independent, requires encouragement Group attendance: No scheduled groups today. Were meds taken: Yes, without issue. Any med S/E: None reported or observed Mental Status Exam Appearance: Pt showered in afternoon, dressed in green unit scrubs while personal clothes were being washed. Eye contact: Fair Behavior: Fatigued, cooperative, linear. Speech: Clear, soft, polite. Mood: Fatigued Affect: Congruent with mood. Thought process: Linear Thought Content: Going home Cognition: A&Ox4 Insight: Fair Judgment: Fair Interventions PRN's used: None Therapeutic interventions: 1:1 assessment, therapeutic communication, active listening, medication administration/education/monitoring, encouragement with autonomy in ADLs provided encouragement, distraction, redirection, positive reinforcement and Q15 minute safety checks. Restraints/seclusion/emergency medication: None Justification of Continued Inpatient Treatment: Patient continues to present GD, will continue to monitor ability to provide for food, fdc and clothing. Pt requires a safe and supportive milieu, as a safe discharge plan is processed.
[2021-05-02 19:07] VITALS: BP 105/64
[2021-05-02] MEDS: clozapine 100mg tablet PO SCH (20:10)
--- NOTE | 2021-05-03 02:20 | NUR ---
Nursing Progress Note Legal hold: vol Client on involuntary status for GD Report received from Johnathan RICHARDSON with use of SBAR Why are they here: Pt admitted on a 5150 for GD. Pt unable make a viable plan for food or chcf or clothing when discharged. Assessment What has happened this shift: Patient seen at bedside for 1:1. He was sleeping, but easily woke up. Patient says he's just catching up on sleep. There were no delusions, odd movements, just linear speech. He surely must be at his baseline, because patient has made no sexual innuendos or religiosity. He will DC home this week. S/I, H/I: Denies A/VH: Denies Sleep: See sleep hours ADL's: Independent, requires encouragement Group attendance: No Were meds taken: Yes Any med S/E: None reported or observed Mental Status Exam Appearance: WNL Eye contact: indirect Behavior: Fatigued, cooperative, stayed in bed Speech: Clear, coherent Mood: Fatigued Affect: Blunted Thought process: Linear Thought Content: WNL Cognition: A&Ox4 Insight: Fair Judgment: Fair Interventions PRN's used: None Therapeutic interventions: 1:1 assessment, therapeutic communication, active listening, medication administration/education/monitoring, encouragement with autonomy in ADLs provided encouragement, distraction, redirection, positive reinforcement and Q15 minute safety checks. Restraints/seclusion/emergency medication: None Justification of Continued Inpatient Treatment: Patient continues to present GD, will continue to monitor ability to provide for food, chcf and clothing. Pt requires a safe and supportive milieu, as a safe discharge plan is processed.
[2021-05-03 07:50] VITALS: BP 99/52
[2021-05-03 08:13] VITALS: BP 118/88
[2021-05-03] MEDS: divalproex sodium 500mg tablet.DR PO SCH ×2 (08:20→20:16)
[2021-05-03] MEDS: clozapine 25mg tablet PO SCH ×3 (08:20→20:16)
[2021-05-03] MEDS: LORazepam 0.5 MG tablet PO SCH ×3 (08:22→20:15)
[2021-05-03] MEDS: metoprolol tartrate 12.5mg (1/2 tablet) PO SCH ×2 (08:23→20:17)
--- NOTE | 2021-05-03 13:40 | NUR ---
DCP Presenting Issues: Per chart review, and MDT consultation, pt's at baseline and ready for d/c. Interventions: SS met w/pt and engaged him in dcp activities. Per session, pt is looking forward to going home and feels that he's ready for d/c. SS had t/c w/pt's mother and she looks forward to having pt rt home, she will come pick pt up @ d/c. Pt's mother request info on Clozaril as this is a new med for pt. SS had t/c w/[facility] dcp-[facility]get[facility], per t/c pt will meet w/his [facility] psychiatric provider on Friday 05/12 ! 1:00 PM for his post hospital follow up. Plan: Pt to d/c tomorrow. Trisha Goodwin LCSW Addendum: 05/03/21 at 1354 by Trisha SOMERS Amended: Links added.
--- NOTE | 2021-05-03 14:00 | NUR ---
Nursing Progress Note: Christian Legal hold: Voluntary Report received from DEDE Rose with use of SBAR Why are they here: Pt admitted on a 5150 for GD. Pt unable make a viable plan for food or nursing home or clothing when discharged. Assessment What has happened this shift: Received patient sleeping at shift change, no distress noted. Pt continues to be compliant with care and medications. Pt is polite, thanking blurb writer after giving morning medications. Pt continues to present fatigued, comes out of his room for meals and snacks, returns to bed to sleep. Pt is easy to arouse. Pt is unfazed about the idea of going home. When asked how he is Im fine, Im good. Pt reports "I am looking forward to it." S/I, H/I: Denies both. A/VH: Denies both. Sleep: 10.5 per sleep assessment. Intermittent naps. Easy to arouse. ADL's: Independent, requires encouragement Group attendance: Declined. Were meds taken: Yes, without issue. Any med S/E: None reported or observed. Mental Status Exam Appearance: Disheveled r/t lying in bed. Dressed in appropriate personal attire. Eye contact: Fair Behavior: Fatigued, cooperative, linear. Speech: Clear, soft, polite. Mood: Fatigued Affect: Congruent with mood. Thought process: Linear Thought Content: Going home Cognition: A&Ox4 Insight: Fair Judgment: Fair Interventions PRN's used: None Therapeutic interventions: 1:1 assessment, therapeutic communication, active listening, medication administration/education/monitoring, encouragement with autonomy in ADLs provided encouragement, distraction, redirection, positive reinforcement and Q15 minute safety checks. Restraints/seclusion/emergency medication: None Justification of Continued Inpatient Treatment: Patient continues to present GD, will continue to monitor ability to provide for food, nursing home and clothing. Pt requires a safe and supportive milieu, as a safe discharge plan is processed. Pt requires assistance and encouragement with ADLs.
[2021-05-03] MEDS: clozapine 100mg tablet PO SCH (20:16)
--- NOTE | 2021-05-04 01:39 | NUR ---
Nursing Progress Note: Christian Legal hold: Voluntary Report received from DEDE Mann with use of SBAR Why are they here: Pt admitted on a 5150 for GD. Pt unable make a viable plan for food or longterm or clothing when discharged. Assessment What has happened this shift: Received patient sleeping at shift change, no distress noted. Pt continues to be compliant with care and medications. Pt was hopeful about discharge. Stated he was thinking about "Going back to college". Pt was very sleepy but easily aroused. S/I, H/I: Denies both. A/VH: Denies both. Sleep: Pt sleeping at time of note ADL's: Independent, requires encouragement Group attendance: N/A Were meds taken: Yes, without issue. Any med S/E: None reported or observed. Mental Status Exam Appearance: Disheveled r/t lying in bed. Dressed in appropriate personal attire. Eye contact: Fair Behavior: Fatigued, cooperative, linear. Speech: Clear, soft, polite. Mood: Fatigued Affect: Congruent with mood. Thought process: Linear Thought Content: Upcoming discharge Cognition: A&Ox4 Insight: Fair Judgment: Fair Interventions PRN's used: None Therapeutic interventions: 1:1 assessment, therapeutic communication, active listening, medication administration/education/monitoring,Q15 minute safety checks. Restraints/seclusion/emergency medication: None Justification of Continued Inpatient Treatment: Patient continues to present GD, will continue to monitor ability to provide for food, longterm and clothing. Pt requires a safe and supportive milieu, as a safe discharge plan is processed. Pt requires assistance and encouragement with ADLs.
[2021-05-04] MEDS ORDERED: LOP12.5T PO ×3 (06:44→08:29)
[2021-05-04] MEDS ORDERED: DIVA500T2 PO ×3 (06:44→08:29)
[2021-05-04] MEDS ORDERED: Lorazepam PO ×2 (06:44→08:29)
[2021-05-04] MEDS ORDERED: CLOZ25TA12 PO ×9 (06:44→08:29)
[2021-05-04] MEDS ORDERED: CLOZ100T13 PO ×3 (06:44→08:29)
[2021-05-04] MEDS: metoprolol tartrate 12.5mg (1/2 tablet) PO SCH (08:04)
[2021-05-04] MEDS: divalproex sodium 500mg tablet.DR PO SCH (08:04)
[2021-05-04] MEDS: clozapine 25mg tablet PO SCH (08:05)
[2021-05-04] MEDS: LORazepam 0.5 MG tablet PO SCH (08:05)
--- NOTE | 2021-05-04 08:19 | NUR ---
Discharge Presenting Issues: Pt's scheduled to discharge today. Interventions: SS had t/c with pt's mother and coordinated transportation for pt to rt home. Per t/c pt's mother requesting 30-days meds as [facility] had contacted her and informed her that since pt currently has [facility] MediCal, his prescriber will not be able to see pt until his MediCal is changed back to [facility]. SS notified attending physician and requested changes to discharging meds order. Plan: Pt to discharge this morning, mother will pickle sorter after 9:00 AM. Trisha Goodwin LCSW Addendum: 05/04/21 at 0847 by Trisha Goodwin Amended: Links added.
[2021-05-04 08:30] VITALS: BP 109/62
--- NOTE | 2021-05-04 09:25 | NUR ---
DISCHARGE NOTE: Patient was discharged from unit at 0913. Pt was escorted to front lobby by conventional underwriter where mother was there to pick him up. Pt left with all personal belongings. Pt was given community crisis service information and reinforced the importance of keeping his 06/01/21 appointment with MH provider. Pt brightened and stated I am ready to go home. Pt was A&Ox4, presented with a blunted affect. Pt brightened and let out a giggle when seeing his mother.
== END 2021-05-04 09:14 | disposition home or self-care (01) | DRG 750 ==
LOC: ADULT MH 15:15
PROVIDERS: ADMIT Psychiatry & Neurology Psychiatry; ATTEND Psychiatry & Neurology Psychiatry
DX: F25.0 Schizoaffective disorder, bipolar type (principal); J18.9 Pneumonia, unspecified organism; E78.5 Hyperlipidemia, unspecified; F84.0 Autistic disorder; R00.0 Tachycardia, unspecified; R07.9 Chest pain, unspecified; Z56.0 Unemployment, unspecified; Z88.2 Allergy status to sulfonamides; Z88.8 Allergy status to other drugs, medicaments and biological substances; Z91.011 Allergy to milk products; Z79.899 Other long term (current) drug therapy
CPT/HCPCS: 36415; 80305; 83615; 84145; 85025; 85379; 86140; 87081; J1650